=== PATIENT | male | born 1955 | race Caucasian/White ===

== ENCOUNTER 2023-12-09 19:13 | Inpatient (IN) | payer MEDICARE, OTHER, SELFPAY ==
[2023-12-09] VITALS (11 sets, daily range): BP systolic 124–166; BP diastolic 83–115; BMI 27.1
[2023-12-09 11:27] LABS: % Basophils 0.6 % (0-2); % Eosinophils 0.4 % (0-6); % Immature Granulocytes 0.3 % (0-0.5); % Lymphocytes 4.8 % (20.5-51.1); % Monocytes 10.4 % (1.7-9.3); % Neutrophils 83.5 % (42.2-75.2); Absolute Basophils 0.1 10^3/uL (0-0.2); Absolute Lymphocytes 0.5 10^3/uL (1.2-3.4); Absolute Monocytes 1.1 10^3/uL (0.1-0.6); Absolute Neutrophils 8.4 10^3/uL (1.4-6.5); Hematocrit 43.8 % (39.0-52.0); Hemoglobin 14.5 g/dL (13.0-18.0); Mean Corp Hgb Conc. 33.1 g/dL (33.0-37.0); Mean Corpuscular Hgb 34.6 pg (27.0-31.0); Mean Corpuscular Volume 104.5 fL (80.0-94.0); Mean Platelet Volume 10.1 fL (7.4-10.4); Nucleated Red Blood Cells % 0 % (-); Platelet Count 201 10^3/uL (130-400); Red Blood Cell Count 4.19 10^6/uL (4.70-6.10); Red Cell Dist. Width 13.4 % (11.5-14.5); White Blood Cell Count 10.1 10^3/uL (4.8-10.8)
--- NOTE | 2023-12-09 11:36 | ED.GENMED ---
History of Present Illness
General
Chief Complaint: Cardiac Symptoms
Source: patient
Exam Limitations: none
Time Seen by Provider: 12/09/23 11:26
Nursing documentation reviewed up to this point in time: agreed with
History of Present Illness
History of Present Illness:
68-year-old male drinker smoker retired recently has not been in a hospital since he was born, told he had hypertension prescribed lisinopril, not taking it for unknown reasons, presents with subacute onset of cough shortness of breath weight gain
leg edema stopped by local clinic today was quickly referred to the ER for evaluation
Past History
Past History
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
ED Past Surgical History: None
Social History
Tobacco: Smoker
Alcohol: Daily
Drug: None
Living: with family
Employment: Retired
Review of Systems
Review of Systems
All Other Systems: Not applicable
Constitutional: Reports weight gain; Denies fatigue
Respiratory: Reports cough and trouble breathing
Cardiac: Reports chest pain; Denies diaphoresis
: Reports no symptoms
Musculoskeletal: Reports edema
Skin: Reports no symptoms
Neurological: Reports no symptoms
Hematologic/Lymphatic: Reports no symptoms
Psychiatric: Reports no symptoms
Phy Exam
Physical Exam
Physical Exam:
Physical Exam
General: Dyspneic appearing male
Neck: Neck veins are up
Heart: Tachycardic
Lungs: Bilateral crackles
Abdomen: Nontender
Neuro: alert and oriented. no focal neurological deficits
Skin: no rash
Psychiatric: well kept. interactive and cooperative
Extremities: 2+ to 3+ edema
Scores
Heart Failure Risk
Heart Failure Risk Score: Yes
History of Stroke or TIA: No
History of intubation for respiratory distress: No
Heart rate on ED arrival >/= 110: Yes
SaO2 <90% on arrival on room air: No
HR >/=110 during 3min walk test (or too ill to perform test): Yes
ECG has acute ischemic changes: Yes
Urea >/=12mmol/L (BUN 33.6mg/dL): No
Serum CO2>/=35mmol/L: No
Troponin I or T elevated to CA Level (0.4mg/dL): No
NT-proBNP >/=5,000ng/L (5,000pg/ml): No
HF Risk Score: 4
Admission Status: HIGH RISK 26.1% Consider SNF treatment or admission to hospital
Course
Orders/Labs/Results
Orders:
Orders
12/09/23 11:05
Electrocardiogram (*1) Urgent
Reason for Study: Shortness of Breath
12/09/23 11:06
EKG- Treatment ONCE
12/09/23 11:16
CMP [Comprehensive Metabolic Panel] Urgent
Complete Blood Count/With Diff Urgent
DDimer [D-Dimer] Urgent
Pro-BNP [NT-proBNP] Urgent
Troponin I Urgent
12/09/23 11:35
CR Chest Portable - 1 View Urgent
Comment:
Reason For Exam: sob
Reason Study Needs to be Portable: Unable to Transport
12/09/23 11:39
EKG- Treatment ONCE
12/09/23 11:41
Nitroglycerin Sublingual [Nitrostat (Sublingual)] 0.4 mg SL [id number] PRN
12/09/23 12:05
Furosemide [Lasix] 80 mg IV NOW STA
12/09/23 12:15
Enalaprilat [Vasotec] 0.625 mg IV NOW STA
Abnormal Lab Results
12/09/23
11:16
RBC 4.19 L 10^6/uL
(4.70-6.10)
MCV 104.5 H fL
(80.0-94.0)
MCH 34.6 H pg
(27.0-31.0)
Absolute Neuts (auto) 8.4 H 10^3/uL
(1.4-6.5)
Absolute Lymphs (auto) 0.5 L 10^3/uL
(1.2-3.4)
Absolute Monos (auto) 1.1 H 10^3/uL
(0.1-0.6)
Neutrophils % 83.5 H %
(42.2-75.2)
Lymphocytes % 4.8 L %
(20.5-51.1)
Monocytes % 10.4 H %
(1.7-9.3)
D-Dimer 1.86 H ug/mlFEU
(0.00-0.50)
Sodium 134 L mmol/L
(135-145)
Carbon Dioxide 32 H mmol/L
(22-30)
Glucose 109 H mg/dl
(70-99)
Total Bilirubin 1.7 H mg/dl
(0.2-1.3)
12/09/23 11:16
12/09/23 11:16
Vital Signs
Initial and Last Documented VS:
Initial Vital Signs
Temp Pulse Resp BP Pulse Ox
98.8 F 129 28 160/115 95
12/09/23 11:08 12/09/23 11:08 12/09/23 11:08 12/09/23 11:08 12/09/23 11:08
Last Documented Vital Signs
Temp Pulse Resp BP Pulse Ox
98.8 F 126 27 166/105 99
12/09/23 11:08 12/09/23 12:34 12/09/23 12:30 12/09/23 12:34 12/09/23 11:58
MDM/Problems Addressed
Differential Diagnosis Includes:
Hypertensive urgency congestive heart failure late presentation CA valvular disease doubt PE
MDM/Problems Addressed:
Shortness of breath tachycardia dyspnea on exertion
Chronic conditions affecting care:
Noncompliant
Chronic conditions affecting care: HTN
Acute Exacerbation and/or Progression of Chronic Illness:
Noncompliance
Acute Exacerbation and/or Progression of Chronic Illness: HTN
*Radiology
Radiology exam reviewed: preliminary read by ED provider
*Pulse Oximetry
Patient hypoxic: yes
*EKG
Interpreted by ED Provider?: Yes
Interpretation: abnormal
Comparison EKG: no comparison EKG present
Heart Rate: 130
Rate: tachycardiac
Rhythm: sinus
Ischemia: non-specific ST changes
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
Rate: tachycardiac
Interpretation: abnormal
Heart Rate: 140
Rhythm: sinus
*Critical Care Note
Total Time (30-74mins, 75-104mins- exclusive of procedures): 32
Update Note
Update Note:
Update labs noted chest x-ray noted will require admission will start with diuresis, nitrates,
Consideration for specialty consultation echocardiogram etc.
ED Attending Note
-
Portions of this chart may have been created with voice recognition software.� Occasional wrong word or��sound alike� substitutions may have occurred due to the inherent limitations of voice recognition software.
Discharge Plan
Departure
Patient Disposition: Admit
Date of Disposition: 12/09/23
Time of Disposition: 12:08
Admit to: IVU
Presentation/result/management discussed w/ accepting MD/DO: Hospitalist
Condition: Fair
Covid-19: Not Applicable
Discharge Problem:
Hypertensive urgency, malignant
Prescriptions:
No Action
No Current Medications
0
Referrals:
NONE,* [Family Provider] -
Interventions
Interventions:
*Risk Screen - Suicide Last Done: 12/09/23 11:11
*Neglect/Abuse Screening Last Done: 12/09/23 11:11
ED- Fall Risk Assessment Last Done: 12/09/23 11:58
*ED COVID-19 Vaccine History Last Done: 12/09/23 12:35
ED- Pulmonary Assessment Last Done: 12/09/23 11:58
ED- Cardiac Assessment Last Done: 12/09/23 11:58
Discharge Date and Time
Print Language: ARABIC
[2023-12-09 11:52] LABS: ALT (SGPT) 25 U/L (0-50); AST (SGOT) 30 U/L (17-59); Albumin 3.9 g/dl (3.5-5.0); Alkaline Phosphatase 68 U/L (38-126); Blood Urea Nitrogen 18 mg/dl (9-20); Calcium 10.1 mg/dl (8.4-10.2); Carbon Dioxide 32 mmol/L (22-30); Chloride 98 mmol/L (98-107); Glucose 109 mg/dl (70-99); Potassium 4.6 mmol/L (3.5-5.1); Sodium 134 mmol/L (135-145); Total Bilirubin 1.7 mg/dl (0.2-1.3); Total Protein 6.5 g/dl (6.3-8.2); eGFR > 60.00
[2023-12-09 12:02] LABS: NT-proBNP 4820 pg/ml
[2023-12-09 12:14] LABS: D-Dimer 1.86 ug/mlFEU (0.00-0.50)
[2023-12-09] MEDS: LASIX 80 MG IV (12:18)
[2023-12-09] MEDS: VASOTEC 0.625 MG IV (12:34)
--- NOTE | 2023-12-09 18:33 | HPS.HSE ---
Addendum entered and electronically signed by Srikanth Daley MD 12/09/23 22:57:
Attending Addendum-
I performed a history and physical exam of the patient and discussed his management with the resident. I reviewed the resident's note and agree with the documented findings and plan of care CC/HPI- Patient reports to ED with worsening SOB/FAROOQ x 2
weeks, significant swelling LE with weight gain @ 20lbs, and intermittent CP. Patient has not seen a physician in years. Full 12 point ROS reviewed and negative except as documented Exam- vitals reviewed in EMR GEN-mild resp distress heart RRR 3/6
SM @ apex 2/6 SM @ RUSB lungs crackles at bases with scattered wheeze Le +3 pitting edema b/l
# Hypertensive Urgency
- monitor BP closely
- start prn labetolol
- c/s cards for eval
- monitor on tele
# Acute Hypoxemic Respiratory Failure
- multifactorial CHF and reactive airway likely COPD
- start duonebs
- wean o2
- cont lasix IV
# Chest Pain-
- EKG- repeat ordered personally reviewed no ST elevation
- trend troponin
- r/o ACS
- consult cards
# B/L LE Edema
- CHF- BNP 4820
- check ECHO
- consult cards
- cont IV lasix BID
- check b/l LE Doppler r/o DVT
- start lovenox
# ETOH Abuse
- drinks 4-6 drinks per night @ 20 years
- high risk w/d
- start MSAS protocol
- start MVI/Thiamine/Folate
- CM consult
# Tobacco Abuse-
- advised/counselled re quitting
- start nicotine patch
# Hyponatremia
- mild
- hypervolemic
- cont diuresis
- repeat BMP in am
- DVT P- Lovenox
Time spent coordinating care, review of plan of care with resident, personally reviewed records in EMR, med rec, labs, radiology, d/w nursing�- 78 mins
Original Note:
Family Physician
-
Family Physician: * NONE
Chief Complaint
-
Shortness of breath
History of Present Illness
Patient is a 68-year-old male with medical history of essential hypertension (not on any medication), who presents to the ED with SOB and chest pain with inhalation. Patient reports that he has not seen primary care in 6 years, was prescribed
lisinopril 20 mg daily but did not take it for unknown reasons. 3 weeks ago, patient started having SOB on exertion and subsequently bilateral LE edema 2 weeks ago. Patient reports drinking 4 shots of vodka every day for the past 30 years+ and
smoking half pack of cigarette daily. He also reports 35 Lbs weight gain from baseline.
Today patient started having chest pain with deep breathing rated 3/10 with worsening shortness of breath. He was seen in the urgent care and was sent to the hospital. On arrival to the hospital, his blood pressure was max 166/105, tachycardic,
and severely tachypneic. His proBNP was elevated at 4820, troponin 0.020, and D-dimer 1.86. Chest x-ray was remarkable for left bibasilar subsegmental atelectasis with mild cardiomegaly and mild elevated left hemidiaphragm. Patient received
single dose of nitroglycerin 0.5 mg and furosemide 80 mg and enalaprilat 0.625 mg with subsequent drop in blood pressure currently 129/90. Patient also reports loose BM for the past week, denies hematochezia, hemoptysis, abdominal pain, headaches,
fever, chills, and urinary symptoms. Patient was admitted for further evaluation and management.
Medical History
Past Medical History
Past Medical History: Reports HTN
Past Surgical History: Reports None
Social History
Tobacco: Smoker
Alcohol: Daily
Drug: None
Living: With Roomate
Employment: Retired
Family History
Family History: Not pertinent
Allergies / Home Medications
Allergy/Medication List:
Allergies
Allergy/AdvReac Type Severity Reaction Status Date / Time
No Known Allergies Allergy Unverified 12/09/23 11:17
Allergies reflects when Allergies were last updated in [facility].
Home Medications with original date entered in [facility]
Review of Systems
-
History Source: Patient
A 12 point ROS was completed and negative except as noted: Yes
Constitutional: Reports Weight Gain
EENT: Reports No Symptoms
Respiratory: Reports Cough and Trouble Breathing
Cardiac: Reports Chest Pain; Denies Palpitations
Abdomen/GI: Reports Diarrhea; Denies Abdominal Pain, Nausea, Vomiting, Constipated, Bloody Stools or Black Stools
: Reports No Symptoms
Musculoskeletal: Reports No Symptoms
Neurological: Denies Headache or Weakness
Endocrine: Reports No Symptoms
Hematologic/Lymphatic: Reports Swollen Glands (Left parotid gland swelling)
Physical Exam
Vital Signs
Vital Signs
Temp Pulse Resp BP Pulse Ox
98.8 F 113 29 139/86 99
12/09/23 11:08 12/09/23 16:15 12/09/23 16:15 12/09/23 16:08 12/09/23 15:17
Physical Exam
General: Comfortable and Conversant; No Respiratory Distress
HEENT: NormoCephalic
Respiratory: Wheezes and Crackles (Bilateral)
Cardiac: S1/S2, Regular Rhythm and Murmur (Systolic murmur)
GI: Soft, Non Distended and Distended
Musculoskeletal: No Clubbing, Edema, Left Lower Extremity, Edema, Right Lower Extremity and Other (3+ bilateral lower extremity edema)
Skin: Warm and Other (Bilateral lower extremity erythema)
Neuro: Awake, Alert, Oriented and AO x 3
Psych: Calm
Laboratory Results
-
12/09/23 11:16
12/09/23 11:16
Laboratory Results
Total Bilirubin 1.7 mg/dl (0.2-1.3) H 12/09/23 11:16
AST 30 U/L (17-59) 12/09/23 11:16
ALT 25 U/L (0-50) 12/09/23 11:16
Alkaline Phosphatase 68 U/L (38-126) 12/09/23 11:16
Troponin I 0.020 ng/ml 12/09/23 11:16
Data Reviewed
-
Diagnostic Radiology: Image Personally Visualized and interpreted, Report Reviewed by me and Discussed with Physician
Lab Data: Labs Reviewed by me and Discussed with Physician
Impression/Plan
-
Assessment:68-year-old male with medical history of essential hypertension and alcohol use disorder who presents to the ED with SOB, chest pain and bilateral LE edema.
IMPRESSION:
Acute hypoxic respiratory insufficiency
Hypertensive urgency
Chest pain
Alcohol use disorder
Tobacco use disorder
Medically noncompliant
PLAN:
Acute hypoxic respiratory insufficiency
-Most likely due to fluid overload vs severe MR.
-Currently on 3 L O2 NC.
-proBNP 4820
-Echocardiogram in a.m.
-IV Lasix 40 mg twice daily.
-Monitor I's and O's
-Trend daily weights.
-Wean oxygen as tolerated.
-Cardiology consult.
Hypertensive urgency
-Hx of essential hypertension.
-IV Lasix 40 mg BID.
-Labetalol as needed.
Chest pain
-D-dimer 1.86
-Most likely due to PE vs pulmonary edema.
-Troponin 0.020, trend.
-B/l LE Doppler in a.m.
-Start Lovenox.
-Consider CT pulmonary angiography.
Alcohol use disorder
-Reports 30 years+ 4 shots of vodka daily.
-Last drink 12/08/2023, 6 PM.
-Check electrolytes
-MSAS protocol
Tobacco use disorder
-Nicotine patch.
Medical noncompliance
-Does not have PCP
[facility]
DVT prophylaxis: Lovenox
CODE STATUS: Full code.
[2023-12-09] MEDS: LOVENOX 40 MG SC (20:22)
[2023-12-09 20:36] LABS: INR 1.22; PT 15.2 Sec (11.4-14.6)
[2023-12-09 20:37] LABS: APTT 31.9 Sec (23.4-35.0)
[2023-12-09 20:45] LABS: Alcohol None Detected; GGTP 38 U/L (15-73); Magnesium 1.3 mg/dl (1.6-2.3); Phosphorus 3.9 mg/dl (2.5-4.5)
[2023-12-09 20:51] LABS: B-Hydroxybutyrate 0.51 mmol/L (0.02-0.27)
[2023-12-09 20:56] LABS: Troponin I 0.041 ng/ml
--- NOTE | 2023-12-09 21:00 | PTCARENOTE ---
Received patient from ER, AAOx4. Patient able to ambulate from stretcher to bed with steady gait, FAROOQ with ambulation. Oriented to unit. 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 New order for Morphine, CT for
PE, and mag rider. Plan of care continues.
[2023-12-09] MEDS: MORPHINE SULFATE 2 MG IV (21:27)
[2023-12-09 21:35] LABS: Urine Albumin Negative (Neg - Trace); Urine Bilirubin Negative (Negative); Urine Character Clear (Clear); Urine Color Yellow; Urine Glucose Negative (Negative); Urine Ketone Negative (Negative); Urine Leukocyte Negative (Negative); Urine Nitrite Negative (Negative); Urine Occult Blood Negative (Negative); Urine Specific Gravity 1.015 (<1.030); Urine Urobilinogen Negative (Neg - 1+)
[2023-12-09 21:48] LABS: Amphetamines Negative (Negative); Barbiturates Negative (Negative); Benzodiazepines Negative (Negative); Buprenorphine Negative (Negative); Cocaine Negative (Negative); Marijuana Negative (Negative); Methadone Negative (Negative); Methamphetamines Negative (Negative); Opiates Negative (Negative); Phencyclidine Negative (Negative); Tricyclic Antidepressants Negative (Negative)
[2023-12-09] MEDS: MAGNESIUM SULFATE 100 IV (22:43)
[2023-12-10] VITALS (7 sets, daily range): BP systolic 114–156; BP diastolic 77–100; BMI 27.0
[2023-12-10] MEDS: PROTONIX IV 40 MG IV ×2 (00:45→08:12)
[2023-12-10] MEDS: NSS (PRESERVATIVE FREE) 10 ML IV ×2 (00:45→08:13)
--- NOTE | 2023-12-10 02:46 | W.PN.UPDATE ---
Update Note
Progress Note Update
Patient noted with intermittent CP overnight, non radiating and without associated symptoms of SOB, dyspnea or radiation. CT neg for PE. Protonix IV given with some effect. May need GI evaluation for gastritis/ulcer related too heavy prolonged etoh
use.
--- NOTE | 2023-12-10 02:58 | PTCARENOTE ---
Troponin 0.030, EKG abnormal. STONE CUTTER aware, NNO at this time.
[2023-12-10 06:53] LABS: % Basophils 0.4 % (0-2); % Eosinophils 0.4 % (0-6); % Immature Granulocytes 0.6 % (0-0.5); % Lymphocytes 5.9 % (20.5-51.1); % Monocytes 12.6 % (1.7-9.3); % Neutrophils 80.1 % (42.2-75.2); Absolute Lymphocytes 0.4 10^3/uL (1.2-3.4); Absolute Monocytes 0.9 10^3/uL (0.1-0.6); Absolute Neutrophils 5.8 10^3/uL (1.4-6.5); Hematocrit 45.3 % (39.0-52.0); Hemoglobin 14.6 g/dL (13.0-18.0); Mean Corp Hgb Conc. 32.2 g/dL (33.0-37.0); Mean Corpuscular Hgb 34.4 pg (27.0-31.0); Mean Corpuscular Volume 106.6 fL (80.0-94.0); Mean Platelet Volume 10.5 fL (7.4-10.4); Nucleated Red Blood Cells % 0 % (-); Platelet Count 189 10^3/uL (130-400); Red Blood Cell Count 4.25 10^6/uL (4.70-6.10); Red Cell Dist. Width 13.7 % (11.5-14.5); White Blood Cell Count 7.2 10^3/uL (4.8-10.8)
[2023-12-10 07:03] LABS: INR 1.26; PT 15.7 Sec (11.4-14.6)
[2023-12-10 07:04] LABS: APTT 36.5 Sec (23.4-35.0)
[2023-12-10] MEDS: THIAMINE INJECTION 200 MG IV ×3 (08:12→18:15)
[2023-12-10] MEDS: NICODERM TRANSDERMAL 7 MG TRANSDERM (08:12)
[2023-12-10] MEDS: FOLVITE 1 MG PO (08:13)
[2023-12-10] MEDS: MAALOX 30 ML PO (08:13)
[2023-12-10 08:14] LABS: ALT (SGPT) 22 U/L (0-50); AST (SGOT) 23 U/L (17-59); Albumin 3.9 g/dl (3.5-5.0); Alkaline Phosphatase 67 U/L (38-126); Blood Urea Nitrogen 19 mg/dl (9-20); Calcium 10.1 mg/dl (8.4-10.2); Carbon Dioxide 35 mmol/L (22-30); Chloride 94 mmol/L (98-107); Estimated Creatinine Clearance 60 ml/min; Glucose 116 mg/dl (70-99); Potassium 4.4 mmol/L (3.5-5.1); Sodium 136 mmol/L (135-145); Total Bilirubin 1.9 mg/dl (0.2-1.3); Total Protein 6.8 g/dl (6.3-8.2); eGFR 55.09
[2023-12-10] MEDS: ATIVAN 1 MG PO (08:27)
[2023-12-10 08:46] LABS: Glycohemoglobin (HgbA1c) 5.5 % (4.0-5.6)
--- NOTE | 2023-12-10 09:08 | CON.CAR ---
Addendum entered and electronically signed by Xavier Waller MD 12/10/23 16:00:
68 yo male with untreated HTN, hyperlipidemia, EtOH and tobacco abuse, no recent medical care; admitted with 3-4 weeks of progressive SOB/FAROOQ, edema, chest tightness. Exam with RRR, III/ systolic murmur at apex, and 2+ LE edema. TnI peak 0.041.
CT PE: no PE. Echo: EF ~50%, severe MR (ruptured chord, partial flail anterior leaflet), dilated RV with decreased fx, mod TR, PASP 55.
He presents with acute HF (new) and severe MR (new).
-cont IV diuresis, with close monitoring of labs and tele
-cont Toprol
-I suspect he will need MV repair as inpatient, but needs medical optimization first.
-We added him to schedule for R/LHC and ROSS tomorrow, but will check Cr and respiratory status first in AM to make sure stable.
I suspect he has lung disease related to tobacco, likely contributing to RV dysfunction.
Original Note:
Consultation
Consultation Request
Date/Time Consultation Requested: 12/10/2023 9:14 AM
Date/Time Consultation Performed: 12/10/2023 9:20 AM
Requesting Provider: Milvia Miller for Srikanth Castillo.
Performing Provider: Tegan Copeland for Xavier Cisneros
Reason for Consultation: Congestive heart failure
Medical History
-
Chief Complaint: Shortness of breath and chest pain
History of Present Illness:
68-year-old male presents to the hospital with gradual onset shortness of breath about 4 weeks ago, his SOB is exertional initially and gradually became worse needing him to sleep in a recliner within 1 week of onset of SOB. Patient noticed edema
of the feet 3 weeks ago that gradually became progressive. Patient developed a burning pain in his chest which was nonradiating but 2 days ago that prompted an urgent care visit and [place] who referred him to the emergency room. His burning
chest pain was about 5/10, worsened with inspiration at the time of admission but improved towards afternoon. He states that he noticed his pants were tighter at his waist over the last 1 week, also had to loosen up his belt. He reported to have
chest tightness overnight that is now about half to three quarters better. His chest tightness is not associated with any radiation, variation in the pain.
He reports that he last saw his primary about 7 years ago, had a history of diagnosis of hyperlipidemia and hypertension, was on lisinopril 20 Mg about 7 years ago but then let it slip. Currently does not have a primary.
He denies any palpitations, diaphoresis, fever, chills, nausea vomiting, bowel or bladder habit changes, sleep or appetite disturbances.
Past Medical History
Past Medical History: Other (HTN, Hyperlipidemia)
Past Surgical History: None
Social History
Tobacco: Smoker (2 packs a week, for 50 years)
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
Drug: None
Personal: Single
Living: With Roomate
Employment: Retired (worked at [employer])
Family History
Family History: Other (father - kidney cancer, mother - breast cancer)
Allergies / Home Medications
Allergy/AdvReac Type Severity Reaction Status Date / Time
No Known Allergies Allergy Unverified 12/09/23 11:17
�Medication �Instructions �Recorded �Confirmed �Type
No Meds [No Current Medications] 12/09/23 12/09/23 History
Review of Systems
-
History Source: Patient
Constitutional: Fatigue
EENT: No Symptoms
Respiratory: Trouble Breathing (with exertion)
Cardiac: Chest Pain (tightness, about 3/4 better)
Abdomen/GI: No Symptoms
: No Symptoms
Musculoskeletal: Edema
Neurological: No Symptoms
Endocrine: No Symptoms
Hematologic/Lymphatic: No Symptoms
Physical Exam
Vital Signs
Temp Pulse Resp BP Pulse Ox
98.1 F 116 18 143/100 100
12/10/23 07:15 12/10/23 07:15 12/10/23 07:15 12/10/23 07:15 12/10/23 07:15
Lab Results
12/10/23 06:20
12/10/23 06:20
Troponin I Cancelled 12/10/23 07:48
Pis-Z-[id number] Pept 4820 pg/ml 12/09/23 11:16
Physical Exam
General: Comfortable
HEENT: Normocephalic and Anicteric
Respiratory: Wheezes (b/l across all lobes posteriorly, anteriorly in b/l upper lobes)
Cardiac: S1/S2, Regular Rhythm, Murmur (3/6 systolic murmur at aortic area and pulmonic areas, raditing into the carotids) and Carotid Pulses (no bruit); Negative JVD
GI: Soft, Distended (mildly distended, ) and Organomegaly (liver border palpable)
Musculoskeletal: No Clubbing, No Cyanosis and Edema (3+ pitting, b/l)
Neuro: AO x 3 and No Motor Deficits
Impression / Plan
-
Impression-
68-year-old male with chief complaint of SOB, fatigue, pedal edema and chest pain diagnosed with malignant hypertensive emergency, cardiology consulted for evaluation of a systolic murmur heard.
Plan-
Acute decompensated Heart Failure - Unknown type.
Likely multifactorial, ischemic vs non ischemic
untreated HTN vs valvular heart disease vs alcoholic cardiomyopathy vs CAD
Troponins - 0.040, non ischemic myocardial injury
Pro BNP - 4280
Echo studies pending
Continue lasix 40 IV BID
sodium and fluid restriction.
Monitor weight and I & O
His elevation in Sr cr is likely secondary to cardiorenal syndrome, monitor renal function closely.
Aspirin loading dose given, will continue baby aspirin from am tomorrow.
Consider left and right heart catheterization tomorrow to evaluate for ischemic etiology if Sr.cr continues to remain stable.
Hypertensive Emergency
Upon admission, BP - 160/120, with elevated troponins, end organ damage- CHF, treated with IV vasotec.
Currently patient is on metoprolol.
Will continue metoprolol for now, pending echo, will consider changing to Co-reg.
Hold off on Entresto given bump in Sr. Cr. Will start Entresto after improvement in kidney function.
PMHx of HTN and hyperlipidemia, lost for treatment. Will order lipid panel in the am tomorrow.
Hypomagnesemia -
Upon admission, Sr. Mg - 1.3, repleted overnight, repeat Mg - 1.6,
Single oral dose supplementation given.
Will continue monitoring electrolytes closely.
--- NOTE | 2023-12-10 09:49 | W.PN.HOSP.TC ---
Addendum entered and electronically signed by Srikanth Daley MD 12/10/23 23:18:
Attending Addendum-
I saw and evaluated the patient. I reviewed the resident�s note and agree with findings and plan as documented in the resident�s note. Patient reports feeling much improved. Had CP last evening, stat CT done r/o PE. Denies SOB and CP currently Full
12 point ROS reviewed and negative except as documented Exam- vitals reviewed in EMR GEN-NAD heart RRR 3/6 SM @ apex 2/6 SM @ RUSB lungs crackles at bases with scattered wheeze LE +3 pitting edema b/l Neuro AAO x 3
# Hypertensive Emergency
- monitor BP closely
- cont new Toprol XL
- cont prn labetolol
- appreciate cards input
- monitor on tele
# BLAKE-
- likely CR syndrome from valvular issues and lasix
- also received IV dye on 12/[address] scan- monitor renal function closely
- repeat BMP in am
# Acute Hypoxemic Respiratory Failure
- resolved
- multifactorial CHF and reactive airway likely COPD- check PFT's for dx
- cont ATC duonebs
- cont lasix IV
- pulm c/s for eval
- CT chest 12/08-
1. MODERATE to SEVERE CARDIOMEGALY suggesting a DILATED NONISCHEMIC CARDIOMYOPATHY.
2. Mild calcific atherosclerotic plaque in the coronary arteries.
3. Mild centrilobular emphysema in the upper lobes of both lungs.
4. Mild bronchial wall thickening in the lower lobes suggesting mild bronchitis.
5. Mild scarring and subsegmental atelectasis in the lower lungs.
6. 3.2 cm midline cyst in the anterior chest wall.
# Non ischemic myocardial inury
- EKG prn CP
- trend troponin- peaked .041
- cards on board
- echo 12/09- Low normal left ventricular systolic function. Left ventricular ejection fraction is 50%. ruptured chord and partial flail of
the anterior mitral valve leaflet. Severe, eccentric mitral regurgiation. Elevated PASP
# Severe MR-
- will need OR
- CT surg c/s
- pulm c/s eval prior
- for right/left heart cathand ROSS in am
# AE HFpEF
- CHF- BNP 4820
- echo reviewed EF 50%
- cards on board
- decreased 6kgs
- daily weight strict i and o
- cont IV lasix BID
- b/l LE Doppler- neg for DVT
- cont lovenox
# Hypomagnesemia-
- replete
- repeat in am
# ETOH Abuse
- drinks 4-6 drinks per night @ 20 years
- high risk w/d
- cont MSAS protocol
- cont MVI/Thiamine/Folate
- CM consult
# Tobacco Abuse-
- advised/counselled re quitting
- start nicotine patch
# Hyponatremia
- mild
- hypervolemic
- cont diuresis
- repeat BMP in am
- DVT P- Lovenox
Time spent coordinating care, review of plan of care with resident, personally reviewed records in EMR, med rec, labs, radiology, d/w nursing cards�- 59 mins
Original Note:
Today's Communication/Plan
-
Echocardiogram and cardiology consult
Assessment / Plan
Assessment / Plan
# Hypertensive Urgency
- monitor BP closely
-Continue prn labetolol for systolics over 170
- monitor on tele
# Acute Hypoxemic Respiratory Failure
- multifactorial CHF and reactive airway likely COPD
- start duonebs
�Will consult pulmonology for PFTs. PFTs will be used for potential COPD diagnosis pending for preop purposes.
- wean o2
- cont lasix IV
# Heart failure w preserved ef
-TTE on 12/10/2023 demonstrated an ejection fraction of 50% and severe MR with ruptured chordae and partial flail of the anterior leaflet.
-CT surgery was consulted for evaluation regarding mitral valve replacement and repair as an inpatient. However he requires more medical optimization first. Will continue diuresis.
# Chest Pain-
- EKG- repeat ordered personally reviewed no ST elevation but T wave inversions were present. Will continue serial EKGs as patient is having intermittent chest pain
-Troponins were trended and peaked at 0.041 and then decreased. Cardiology was consulted at says it is likely a type II demand ischemia.
# B/L LE Edema
- CHF- BNP 4820
- cont IV lasix BID
-Bilateral lower extremity Doppler returned with no evidence of DVT in the lower extremities bilaterally
-Continue lovenox
# ETOH Abuse
- drinks 4-6 drinks per night @ 20 years
- high risk w/d
- start MSAS protocol, score this morning was 5
- start MVI/Thiamine/Folate
- CM consult
# Tobacco Abuse-
- advised/counselled re quitting
- start nicotine patch
# Hyponatremia
- mild
- hypervolemic
- cont diuresis with IV Lasix
- repeat BMP in am
- DVT P- Lovenox

Data:
Echocardiography 12/10/2023:
Low normal left ventricular systolic function. Left ventricular ejection
fraction is 50%.
Thickened mitral valve leaflets. There is a ruptured chord and partial flail of
the anterior mitral valve leaflet.
Severe, eccentric mitral regurgiation.
Aortic sclerosis without stenosis. Trace aortic regurgitation is seen.
Enlarged right ventricular size. Reduced right ventricular systolic function.
Moderate tricuspid regurgitation. Moderate/severely elevated PASP. Estimated
pulmonary artery pressure of 55 mmHg assuming a right atrial pressure of 15
mmHg.
Anticipated Discharge: > 48 hours
Subjective/Interval History
-
Date of Service: December 10, 2023
Had episodes of chest tightness overnight was given morphine and Protonix also had a CTA which was negative for PE.
Objective Data
-
Labs:
Laboratory Results
12/10/23
06:20
WBC 7.2
Hgb 14.6
Hct 45.3
Plt Count 189
PT 15.7 H
INR 1.26
APTT 36.5 H
Sodium 136
Potassium 4.4
Chloride 94 L
Carbon Dioxide 35 H
BUN 19
Creatinine 1.4 H
Glucose 116 H
Calcium 10.1
Total Bilirubin 1.9 H
AST 23
ALT 22
Alkaline Phosphatase 67
Vital Signs:
Vital Signs
Temp Pulse Resp BP Pulse Ox
98.1 F 116 18 143/100 100
12/10/23 07:15 12/10/23 07:15 12/10/23 07:15 12/10/23 07:15 12/10/23 07:15
I&O
12/09/23 12/10/23 12/11/23
06:59 06:59 06:59
Intake Total 240 / 240
Output Total 3860 / 3860
Balance -3620 / -3620
Review of Systems
-
History Source: Patient
Constitutional: Reports No Symptoms
Respiratory: Reports Trouble Breathing
Cardiac: Reports Chest Pain
Abdomen/GI: Reports No Symptoms
Genitourinary: Reports No Symptoms
Musculoskeletal: Reports Edema
Physical Exam
-
General: No Apparent Distress
Respiratory: Clear to Auscultation
Cardiac: Murmur
GI: Soft, Nontender and Distended
Musculoskeletal: Edema, Right Lower Extrem and Edema, Left Lower Extrem
Skin: Warm and Dry
Neuro: AO x 3
Psych: Calm
Data Reviewed
-
Diagnostic Radiology: Image personally visualized and interpreted, Report Reviewed by me and Discussed with Physician
Labs: Labs Reviewed by me and Discussed with Physician
[2023-12-10 10:38] LABS: Magnesium 1.6 mg/dl (1.6-2.3)
[2023-12-10] MEDS: PULMICORT 0.25 MG INH (11:40)
[2023-12-10] MEDS: ASPIRIN 325 MG PO (11:53)
[2023-12-10] MEDS: LASIX 40 MG IV ×2 (11:54→18:13)
[2023-12-10] MEDS: MAGNESIUM OXIDE 500 MG PO (11:54)
[2023-12-10] MEDS: TOPROL XL 25 MG PO (11:54)
--- NOTE | 2023-12-10 14:04 | CONSULT.CT ---
Consultation
-
Date/Time Consultation Requested: 12/10/23
Date/Time Consultation Performed: 12/10/23 0415
Requesting Provider: Dr. Xavier Waller MD.
Performing Provider: Kay Agarwal PA-C
Reason for Consultation: Newly diagnosed severe MR
Patient History
Physicians
Family Physician: None
Outpatient Nail Welter: None
Inpatient Nail Welter: [facility]/Dr. Xavier Waller MD.
History of Present Illness
Patient is an extremely pleasant 68 y/o male who has not received any medical care in the past 7 years. He was previously diagnosed with hypertension and placed on 20 lisinopril twice daily however, he non-compliantly stopped taking his medications
and did not have any follow up.
His PMH consists of HTN, heart murmur diagnosed 30 years ago, COPD/emphysema, daily alcohol use (3-4 drinks per day-vodka), tobacco abuse, and current smoker (2 packs per week x 40+ years), who has been experiencing multiple and progressing symptoms
for the past 4 weeks. Patient admits to exertional SOB/FAROOQ, lower extremity edema, PND, orthopnea (sleeps in a recliner), and chest discomfort described as chest burning with inhalation.
He sought medical attention at an urgent care in [place] and was referred to [facility]'s emergency department on 12/09/2023. Further workup in the emergency department revealed a chest x-ray revealing no acute concerns (elevated left
hemidiaphragm), CT PE study which was negative, and EKG revealing sinus tachycardia with PVCs (121). His peak troponin was 0.041 likely due to type II demand ischemia.
Subsequent TTE reveals an ejection fraction of 50%, trace AI, moderate TR, and severe MR with ruptured chordae and partial flail of the anterior leaflet. CT surgery was consulted for evaluation regarding mitral valve repair/replacement.
Of note: Patient resides on medicine service and is being treated with IV steroids (Decadron 6 mg IV twice daily).
EK12/09/23
ST, PVC's (121)
TEEcho: 12/10/23 Sridhar
EF 50%
Severe MR, ruptured cord and partial flail of anterior leaflet
Trace AI
Moderate TR
Trace MO
LVSD: 44
LVDD: 55
PAP: 55
CT PE Study: 12/09/23
No evidence of central filling defect/pulmonary embolism
Past Medical History
Past Medical History: Other
HTN
Heart murmur diagnosed 30 years ago
Daily ETOH (3-4 drinks per day-vodka)
Tobacco abuse/current smoker (2 packs per week x 40+ years)
COPD/emphysema
Past Surgical History
Patient denies any previous surgical intervention
Dental History
Last seen 6 months ago by DMD. Jose Cooperison, for routine cleaning.
Family History
Mother: at Age (69) and Cause of (Complications with breast and colon cancer)
Father: at Age (95) and Cause of (Complications with kidney/bladder cancer. Did suffer from coronary artery disease, history of PCI and stenting)
Family Medical History: CAD
Social History
Alcohol: Daily (3-4 drinks per day-vodka)
Drug: None
Tobacco: Smoker (Current everyday smoker (2 packs per week x 40+ years).)
Personal: Single
Living: With Roomate
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
Allergies
Allergy/AdvReac Type Severity Reaction Status Date / Time
No Known Allergies Allergy Unverified 12/09/23 11:17
Home Medications
�Medication �Instructions �Recorded �Confirmed �Type
No Meds [No Current Medications] 12/09/23 12/09/23 History
Review of Systems
-
History Source: Patient
General: Reports Fever (100.4 upon admission ); Denies Weight Gain, Weight Loss or Fatigue
HEENT: Denies Visual Changes, Dysphagia, Hoarseness or Sore Throat
Respiratory: Reports SOB, FAROOQ and PND; Denies Cough or Asthma
Cardiac: Reports Edema; Denies Chest Pain, CAD, Known Vascular Disease, Palpitations, Nausea, Vomiting or Diaphoresis
Abdomen/GI: Denies Abdominal Pain, Reflux, Indigestion, Nausea, Vomiting, BRBPR or Ulcers
: Reports Nocturia (2-4x/night ); Denies Dysuria, Frequency, Incontinence, Urgency or Hematuria
Musculoskeletal: Denies Myalgias or Arthralgias
Skin: Denies Rash
Neurological: Denies CVA, TIA, Headaches, Syncope, Dizzy or Seizures
Vascular: Denies Claudication or PVD
Physical Exam
Vital Signs
Temp 98.3 F 12/10/23 11:04
Temp route: Oral 12/10/23 11:04
Pulse 122 12/10/23 11:54
Rhythm: Sinus tachycardia 12/10/23 08:00
With- PVC's Monomorphic 12/09/23 22:00
Resp Rate 16 12/10/23 11:43
Blood pressure 122/83 12/10/23 11:54
Blood pressure extremity used: Right upper arm 12/10/23 11:04
Position: Sitting 12/10/23 11:04
MAP (cuff-Chi Monitor) 95 12/09/23 19:00
SaO2 93 12/10/23 11:43
Nasal Cannula flow liters per minute 2 12/10/23 11:43
Oxygen Mode of Delivery Room air 12/10/23 11:04
Can the patient verbally communicate their pain? Yes 12/09/23 22:27
Pain scale ratin 12/09/23 22:27
Actual Weight 210 lb 7 oz 12/10/23 06:00
Body Mass Index (BMI) 27.0 12/10/23 06:00
Labs
12/10/23 06:20
12/10/23 06:20
PT 15.7 Sec (11.4-14.6) H 12/10/23 06:20
APTT 36.5 Sec (23.4-35.0) H 12/10/23 06:20
Hemoglobin A1c 5.5 % (4.0-5.6) 12/10/23 06:20
Troponin I Cancelled 12/10/23 07:48
Ris-J-Vsddbqqrskt Pept 4820 pg/ml 12/09/23 11:16
Urinalysis
Urine Color Yellow 12/09/23 21:22
Urine Clarity Clear (Clear) 12/09/23 21:22
Urine pH 5.0 (5.0-9.0) 12/09/23 21:22
Ur Specific Wynne 1.015 (<1.030) 12/09/23 21:22
Urine Ketones Negative (Negative) 12/09/23 21:22
Urine Occult Blood Negative (Negative) 12/09/23 21:22
Urine Bilirubin Negative (Negative) 12/09/23 21:22
Ur Leukocyte Esterase Negative (Negative) 12/09/23 21:22
Urine Glucose Negative (Negative) 12/09/23 21:22
Urine Albumin Negative (Neg - Trace) 12/09/23 21:22
Diagnostic Studies
EK12/09/23
ST, PVC's (121)
TEEcho: 12/10/23 Sridhar
EF 50%
Severe MR, ruptured cord and partial flail of anterior leaflet
Trace AI
Moderate TR
Trace MO
LVSD: 44
LVDD: 55
PAP: 55
CT PE Study: 12/09/23
No evidence of central filling defect/pulmonary embolism
Exam
General: Well Developed, Well Nourished and No Apparent Distress (However, does appear mildly winded with conversation)
HEENT: Normocephalic, Moist Mucous Membranes, Atraumatic, PERRLA and EOMI
Neck: Trachea Midline; Negative Carotid Bruit
Respiratory: Wheezes (Mild, expiratory); Negative Crackles or Rhonchi
Cardiac: S1/S2, Regular Rhythm (/ sinus tachycardia), Murmur (4/6 Systolic murmur at apex with radiation to the left axilla ) and Other (Mass/cyst overlying sternum); Negative Rub or Gallop
GI: Soft, Non Tender, Non Distended and Normal Bowel Sounds
Rectal: Deferred by Provider
Skin: Warm and Dry; Negative Rash
Neuro: AO x 3, No Motor Deficits and CN X-XII Intact
Extremities: Lower Level Edema (3+ LE edema L > R ); Negative Upper Level Edema, Upper Level Cyanosis, Lower Level Cyanosis, Upper Level Clubbing or Lower Level Clubbing
Psych: Calm
Assessment / Plan
-
Assessment:
68 year old male with PMH of:
HTN
Heart murmur diagnosed 30 years ago
COPD/emphysema
Daily alcohol use (3-4 drinks per day-vodka)
Tobacco abuse, and current smoker (2 packs per week x 40+ years)
Now found to have newly diagnosed:
Severe MR
Acute HFpEF
Type II WI, demand ischemia, peak troponin 0.041
Cardiorenal syndrome with elevated serum Cr of 1.4 and total bilirubin of 1.9
Plan:
Patient's case to be discussed with attending physician.
Routine preoperative cardiothoracic surgery workup will be initiated.
STS risk stratification will be calculated once all preoperative data is collected.
Currently receiving IV steroids (Decadron 6 mg IV every 12) likely for COPD/emphysema and current tobacco use.
Continue care per primary service�hospitalist.
Cardiology following, input appreciated, continue diuresis.
Possible L & R HC tomorrow if renal functions remains stable.
Will likely need ROSS.
Further details regarding patient's intervention will be determined after attending physicians full review.
--- NOTE | 2023-12-10 17:07 | CM ---
IA not done pt off floor. [facility] saw pt. He agrees to inpatient substance abuse rehab.
[2023-12-10] MEDS: DUONEB INH (17:49)
[2023-12-10] MEDS: LOVENOX 40 MG SC (18:06)
[2023-12-10] MEDS: DUONEB 3 ML INH (19:40)
[2023-12-11] VITALS (15 sets, daily range): BP systolic 112–128; BP diastolic 64–89; BMI 26.7
[2023-12-11] MEDS: THIAMINE INJECTION 200 MG IV ×3 (00:04→16:17)
[2023-12-11] MEDS: DUONEB 3 ML INH ×4 (02:04→19:25)
[2023-12-11 07:04] LABS: Mean Corp Hgb Conc. 31.8 g/dL (33.0-37.0); Mean Corpuscular Hgb 34.2 pg (27.0-31.0); Mean Corpuscular Volume 107.6 fL (80.0-94.0); Mean Platelet Volume 10.3 fL (7.4-10.4); Platelet Count 188 10^3/uL (130-400); Red Blood Cell Count 4.09 10^6/uL (4.70-6.10); Red Cell Dist. Width 13.2 % (11.5-14.5); White Blood Cell Count 6.1 10^3/uL (4.8-10.8)
[2023-12-11 07:13] LABS: INR 1.23; PT 15.3 Sec (11.4-14.6)
[2023-12-11 07:14] LABS: APTT 36.2 Sec (23.4-35.0)
[2023-12-11 07:36] LABS: ALT (SGPT) 19 U/L (0-50); AST (SGOT) 22 U/L (17-59); Albumin 3.6 g/dl (3.5-5.0); Alkaline Phosphatase 61 U/L (38-126); Blood Urea Nitrogen 27 mg/dl (9-20); Calcium 10.4 mg/dl (8.4-10.2); Carbon Dioxide 35 mmol/L (22-30); Chloride 94 mmol/L (98-107); Direct Bilirubin 0.6 mg/dl (0.0-0.4); Estimated Creatinine Clearance 64 ml/min; Glucose 107 mg/dl (70-99); HDL Cholesterol 51 mg/dl; LDL Cholesterol, Calculated 47 mg/dl; Magnesium 1.5 mg/dl (1.6-2.3); Potassium 4.2 mmol/L (3.5-5.1); Sodium 136 mmol/L (135-145); Total Bilirubin 1.6 mg/dl (0.2-1.3); Total Cholesterol 108 mg/dl (50-199); Total Protein 6.2 g/dl (6.3-8.2); Triglyceride 51 mg/dl (10-149); Very Low Density Lipoprotein 10 mg/dl (0-30); eGFR > 60.00
--- NOTE | 2023-12-11 08:34 | W.PN.CD ---
Today's Communication / Plan
-
- Continue IV lasix
- Metoprolol
- Right and left heart catheterization
-ROSS
Impression / Plan
-
Background -
68-year-old male with PMHx significant for untreated HTN, and Hyperlipidemia presents malignant hypertensive emergency, and heart failure symptoms. Cardiology consulted for evaluation of a systolic murmur heard.
Impression-
Acute decompensated Heart Failure -HFpEF.
On IV lasix BID.
proBNP-4280.
Untreated HTN and HLD in the past.
sodium and fluid restriction.
Monitor weight and I & O
Sr. Cr - 1.3 today, BUN - 27, monitor renal function closely.
right and left heart catheterization, ROSS evaluation rescheduled as patient ate his meals in the am today.
s/p right and left heart catheterization, non obstructing Coronary artery disease, 40% lesion in the mid circumflex. between OM2 and OM3 branches.
Conclusion of right and left heart catheterization -
1. Right dominant circulation with a 40% lesion in the mid circumflex.
2. Mild to moderately elevated filling pressures (LVEDP = 16 mmHg, PCWP = 20 mmHg at 94.3 kg).
3. 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
4. Severe mitral valve regurgitation on echocardiogram.
Echocardiogram- 12/10/23 -
Low normal left ventricular systolic function. LVEF - 50%
Thickened mitral valve leaflets. There is a ruptured chord and partial flail of the anterior mitral valve leaflet.
Severe, eccentric mitral regurgitation.
dilated RV with decreased function, Moderate/severely elevated PASP - 55mmhg.
Hypertensive Emergency
Upon admission, BP - 160/120, with elevated troponins, end organ damage- CHF, treated with IV vasotec.
Currently patient is on metoprolol.
BP well controlled on lasix and Metoprolol.
Will consider entresto in the am tomorrow.
Lipid panel WNL.
Pulmonary HTN -
Likely a confluence of COPD and MR.
Right heart catheterization today.
Hypomagnesemia -
IV magnesium repletion.
Will continue monitoring electrolytes closely.
Physical Exam
Vital Signs/Labs
Vital Signs
Temp Pulse Resp BP Pulse Ox
97.9 F 84 16 116/80 96
12/11/23 07:35 12/11/23 07:35 12/11/23 07:35 12/11/23 07:35 12/11/23 07:35
12/10/23 12/11/23 12/12/23
06:59 06:59 06:59
Actual Weight 95.453 kg 94.347 kg
12/11/23 06:46
12/11/23 06:46
PT 15.3 Sec (11.4-14.6) H 12/11/23 06:46
INR 1.23 12/11/23 06:46
APTT 36.2 Sec (23.4-35.0) H 12/11/23 06:46
Magnesium 1.5 mg/dl (1.6-2.3) L 12/11/23 06:46
Triglycerides 51 mg/dl (10-149) 12/11/23 06:46
LDL Cholesterol, Calc 47 mg/dl 12/11/23 06:46
VLDL Cholesterol, Calc 10 mg/dl (0-30) 12/11/23 06:46
HDL Cholesterol 51 mg/dl 12/11/23 06:46
12/09/23
11:16
Ylv-J-Obuetqhrgwm Pept 4820
LAB Results
12/09/23 12/09/23 12/10/23
11:16 20:16 02:06
Troponin I 0.020 0.041 H* 0.030 D
12/10/23
07:48
Troponin I Cancelled
Physical Exam
Constitutional: Comfortable
Cardiovascular: Rhythm & rate is regular, JVD present, Systolic murmur present (3/6 at apex) and S1S2 is normal
Respiratory: Respiratory effort normal, Wheeze Present (improved.) and Crackles Present (b/l lower lobes)
Neuro/Psych: AO x 3
Data Reviewed
-
Date of Service: December 11, 2023
[2023-12-11] MEDS: TOPROL XL 25 MG PO (08:47)
[2023-12-11] MEDS: LASIX 40 MG IV ×2 (08:47→16:17)
[2023-12-11] MEDS: LOW STRENGTH ASPIRIN 81 MG PO (08:47)
[2023-12-11] MEDS: FOLVITE 1 MG PO (08:47)
[2023-12-11] MEDS: NICODERM TRANSDERMAL TRANSDERM (08:49)
[2023-12-11] MEDS: NSS (PRESERVATIVE FREE) 10 ML IV (08:55)
[2023-12-11] MEDS: PROTONIX IV 40 MG IV (08:55)
[2023-12-11] MEDS: MAGNESIUM SULFATE 50 IV (08:55)
[2023-12-11] MEDS: FLUSH (NSS) 1 FLUSH IV ×2 (08:56→16:17)
--- NOTE | 2023-12-11 12:39 | CON.PUL ---
Consultation
Consultation Request
Date/Time Consultation Requested: 12/10/2023 - 1815
Date/Time Consultation Performed: 12/11/2023925
Requesting Provider: Dr. Pressley
Performing Provider: Dr. Ruvalcaba
Reason for Consultation: COPD/preoperative pulmonary optimization
Medical History
-
Chief Complaint: Lower extremity edema + SOB
History of Present Illness:
68-year-old male with a past medical history of hypertension and hyperlipidemia presented with SOB X 2 weeks with significant lower extremity swelling and weight gain. Also endorsed occasional chest pain. Patient has not seen a doctor in years
hence past medical history is limited. He appeared volume overloaded on exam and was hypertensive initially to 160/115, with heart rate 129 and saturating 95% on room air. Dx with acute heart failure and he was given Vasotec IV X1 + Lasix in the
ER and admitted to the hospitalist service for further care with cardiology consulted. CXR showed cardiomegaly with left hemidiaphragm elevation, and CT of the chest showed centrilobular emphysema with moderate to severe cardiomegaly and global
cardiac chamber enlargement. TTE showed severe eccentric MR with ruptured chordae and partial flail of anterior MV leaflet seen on TTE. Cardiothoracic surgery consulted, and preoperative PFT performed on 12/10/2023 showed very severe COPD with
significant BD response, significant air trapping, very severe gas exchange capacity defect as well as very severe restrictive lung defect. He underwent left and right heart catheterization today showing right dominant circulation with 40% lesion
in the mid circumflex, with elevated LVEDP at 16 mmHg with PCWP 20 mmHg, with severe MR seen on echo from yesterday. Pulmonary now consulted for additional management of his COPD as well as preoperative pulmonary optimization.
When I saw the patient he was in bed, in no acute distress, saying he has no shortness of breath since yesterday and feels much better overall. He is pulling 1500 cc on incentive spirometer. He is walking around the unit in no acute distress, with
no shortness of breath or chest pain. He says that he smokes about 2 packs/week over the last 6 years, but previously was smoking about 1 pack/day for about 45 years. He understands that he has to quit and is amenable for this, but he is still
contemplating cigarette cessation. He currently denies headache, chest pain, shortness of breath, abdominal pain, fevers or chills.
PMHx: HTN/HLD, tobacco use disorder and alcohol use disorder
PSHx: None
Past Medical History
Past Medical History: Other (Above as per HPI)
Past Surgical History: Other (Above as per HPI)
Social History
Tobacco: Smoker (1-2 packs/week x last 6 years, previously was 1PPD x 45 years)
Alcohol: Daily
Drug: None
Living: With Roomate
Employment: Retired
Family History
Family History: Reviewed & Not Pertinent
Allergies / Home Medications
Allergies
Allergy/AdvReac Type Severity Reaction Status Date / Time
No Known Allergies Allergy Unverified 12/09/23 11:17
Home Medications
�Medication �Instructions �Recorded �Confirmed �Last Taken �Type
No Meds [No Current Medications] 12/09/23 12/09/23 Unknown History
Review of Systems
-
History Source: Patient
All other systems: Negative unless noted
Vitals / Labs / Diagnostic Testing
Vital Signs
Temp Pulse Resp BP Pulse Ox
97.8 F 81 16 120/82 95
12/11/23 10:59 12/11/23 10:59 12/11/23 10:59 12/11/23 10:59 12/11/23 10:59
Lab Data
12/11/23 06:46
12/11/23 06:46
Laboratory Results
12/11/23
06:46
PT 15.3 H
INR 1.23
APTT 36.2 H
Diagnostic Testing:
Physical Exam
-
HEENT: Normocephalic and Anicteric
Cardiovascular: S1/S2, Murmur (Holosystolic murmur heard at the LUSB + left 5th intercostal space) and Peripheral Edema (+1 lower extremity edema)
Respiratory: Wheeze (negative), Rales (Bibasilar), Rhonchi (Negative) and Non-Labored Respirations
GI: Soft, Non Distended, Non Tender and Normal Bowel Sounds
Neurology: AO x 3 and Tremors (Negative)
Skin: Warm and Dry
General: Comfortable and Chills (Negative)
Assessment
-
Assessment: 68-year-old male with a past medical history of hypertension and hyperlipidemia presented with SOB X 2 weeks with significant lower extremity swelling and weight gain. Also endorsed occasional chest pain. Patient has not seen a doctor
in years hence past medical history is limited. He appeared volume overloaded on exam and was hypertensive initially to 160/115, with heart rate 129 and saturating 95% on room air. Dx with acute heart failure and he was given Vasotec IV X1 + Lasix
in the ER and admitted to the hospitalist service for further care with cardiology consulted. CXR showed cardiomegaly with left hemidiaphragm elevation, and CT of the chest showed centrilobular emphysema with moderate to severe cardiomegaly and
global cardiac chamber enlargement. TTE showed severe acute eccentric MR with ruptured chordae and partial flail of anterior MV leaflet seen on TTE. Cardiothoracic surgery consulted, and preoperative PFT performed on 12/10/2023 showed very severe
COPD with significant BD response, significant air trapping, very severe gas exchange capacity defect as well as very severe restrictive lung defect. He underwent left and right heart catheterization today showing right dominant circulation with
40% lesion in the mid circumflex, with elevated LVEDP at 16 mmHg with PCWP 20 mmHg, with severe MR seen on echo from yesterday. Pulmonary now consulted for additional management of his COPD as well as preoperative pulmonary optimization.
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
Impression:
#Very severe COPD (due to centrilobular emphysema) with air trapping
#Hypertensive urgency now improved
#Moderate�severe cardiomegaly with suggested dilated NICM from uncontrolled long-standing HTN (+/- EtOH), with mild coronary calcific atherosclerotic plaque seen on CTA chest from 12/09/2023
#Acute decompensated heart failure/acute HFpEF with severe eccentric MR with ruptured cord and partial flail of anterior MV leaflet (per TTE from 12/10/2023)
#Moderate pulmonary hypertension with mPAP: 38mmHg
#Daily alcohol use
#Tobacco use disorder
Plan:
- Maintain BP <140/90
- Diuresis as tolerated and trend I/O, UOP and sCr
- Severe mitral valve regurgitation surgical intervention per cardiothoracic surgery - he is now awaiting ROSS
- Start LAMA/LABA combo with Spiriva and Striverdi, and change ATC Duonebs to prn; he should be DC'd home on either Stiolto vs Anoro ellipta with outpatient follow up (which I will arrange)
- Tobacco cessation strongly encouraged and reinforced during today's encounter
- Discussed nicotine replacement therapy
- Nicotine patch for now
- He qualifies for LDCT chest for lung cancer screening purposes -considering he just had a CTA chest performed on 12/09/2023, he does not need to repeat CT chest until December 2024
- Maintain SpO2 >90-94% with supplemental O2 as needed
- Incentive spirometer
- Replete electrolytes with K>4, Mg>2
- Maintain euglycemia with goal BG >100 and <180
- prn nebulized bronchodilators
- DVT ppx
Pulmonary service will continue to follow along. I will arrange to see the patient in the office following discharge.
Total time spent today was 75 minutes for this encounter. Time includes reviewing laboratory test/imaging results, reviewing pertinent medical records, obtaining and reviewing medical history, performing an appropriate exam, ordering medications,
tests and procedures. Time also includes documentation of this encounter, coordinating patient care and communicating with other healthcare professionals. Total time does not include separately billed tests performed on this date of service.
Data:
CTA Chest 7-1-2024:
1. MODERATE to SEVERE CARDIOMEGALY suggesting a DILATED NONISCHEMIC CARDIOMYOPATHY.
2. Mild calcific atherosclerotic plaque in the coronary arteries.
3. Mild centrilobular emphysema in the upper lobes of both lungs.
4. Mild bronchial wall thickening in the lower lobes suggesting mild bronchitis.
5. Mild scarring and subsegmental atelectasis in the lower lungs.
6. 3.2 cm midline cyst in the anterior chest wall.
[facility] 12-11-2023:
CONCLUSIONS:
1. Right dominant circulation with a 40% lesion in the mid circumflex.
2. Mild to moderately elevated filling pressures (LVEDP = 16 mmHg, PCWP = 20 mmHg at 94.3 kg).
3. 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
4. Severe mitral valve regurgitation on echocardiogram.
RECOMMENDATIONS:
1. Expectant management after cardiac catheterization via right radial/antecubital approach.
2. Limited weight bearing on the right wrist for one week.
3. Guideline directed medical therapy as hemodynamics will tolerate.
4. Consultation with CT surgery regarding optimal strategy for mitral valve repair (surgical versus percutaneous).
TTE 12-10-2023:
Low normal left ventricular systolic function. Left ventricular ejection
fraction is 50%.
Thickened mitral valve leaflets. There is a ruptured chord and partial flail of
the anterior mitral valve leaflet.
Severe, eccentric mitral regurgiation.
Aortic sclerosis without stenosis. Trace aortic regurgitation is seen.
Enlarged right ventricular size. Reduced right ventricular systolic function.
Moderate tricuspid regurgitation. Moderate/severely elevated PASP. Estimated
pulmonary artery pressure of 55 mmHg assuming a right atrial pressure of 15
mmHg.
No prior study available for comparison.
--- NOTE | 2023-12-11 13:26 | ITS.CL.CATH ---
[employer] - Catheterization
Cardiac Catheterization
Procedure Report:
CARDIAC CATHETERIZATION REPORT
Date of Procedure: 12/11/2023
Referring: Jose L Gamez M.D.
Indication: Severe mitral valve vegetation.
PROCEDURE:
1. Right heart catheterization.
2. Left heart catheterization.
3. Coronary angiography.
ACCESS:
6 Armenian right radial artery.
5 Armenian right antecubital vein.
CATHETERS:
1. 5 Armenian balloon wedge.
2. 5 Armenian JL 3.5.
3. 5 Armenian JR4.
HEMODYNAMIC DATA
Weight (kg): 94.3
AO (s/d/x mmHg): 118/90/103
LV (s/x mmHg): 120/16
PCWP (a/v/x mmHg): 25/36/20
PA (s/d/x mmHg): 60/27/38
RV (s/x mmHg): 68/15
RA (a/v/x mmHg): 22/21/15
SVC SvO2 (%): 58.1
PA SvO2 (%): 58.9
SaO2 (%): 93.7
Hbg (g/dL): 14.3
CO (L/min): 3.85
CI (L/min/m2): 1.74
TPG (mmHg): 18
PVR (Sosa Units): 4.67
SVR (dynes*seconds*cm^-5): 1829
AVO2 Diff (Volume %): 6.77
AV gradient (x, mmHg): None.
AV area (cm2): Normal.
LEFT VENTRICULOGRAPHY: Not performed.
CORONARY ANGIOGRAPHY
Dominance: Right.
Left Main: Normal size, bifurcating vessel. There is no coronary artery disease.
LAD: Large size vessel giving rise to 1 large diagonal before wrapping around the apex of the heart and supplying the distal inferior third of the interventricular septum. There is no significant coronary artery disease.
Ramus: Congenitally absent.
Circumflex: Large size, nondominant vessel giving rise to 3 obtuse marginals. OM1 is a small vessel arising very high on the circumflex. OM 2 is a small vessel in the mid circumflex. OM 3 is a small to medium size vessel. OM 4 is a much larger
vessel supplying the majority of the inferolateral wall. There is a 40% lesion in the mid circumflex, and between OM 2 and OM 3.
RCA: Normal size, dominant vessel with a prominent posterolateral arcade. There are minor luminal irregularities.
INTERVENTIONS
None.
Closure Device: Vascular band for the right radial artery, manual pressure for the right antecubital vein.
Radiation dose (mGy): 285.93
DAP (cm2.Gy): 28.1671
Fluoroscopy time (minutes): 3.2
Sedation time (minutes): 10
CONCLUSIONS:
1. Right dominant circulation with a 40% lesion in the mid circumflex.
2. Mild to moderately elevated filling pressures (LVEDP = 16 mmHg, PCWP = 20 mmHg at 94.3 kg).
3. 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
4. Severe mitral valve regurgitation on echocardiogram.
RECOMMENDATIONS:
1. Expectant management after cardiac catheterization via right radial/antecubital approach.
2. Limited weight bearing on the right wrist for one week.
3. Guideline directed medical therapy as hemodynamics will tolerate.
4. Consultation with CT surgery regarding optimal strategy for mitral valve repair (surgical versus percutaneous).
Copy to: Jose L Gamez M.D., Ezekiel Quintanilla M.D.
Hamzah Horn DO, FACC, FACP
--- NOTE | 2023-12-11 14:03 | PTCARENOTE ---
received pt from ammunition assembly laborer via bed, accompanied by ammunition assembly laborer staff x2. Pt AAO x3, JOHN. VSS. Telemetry:NSR. Rt brachial site dsg D/I; Rt radial site with TR band intact; rt radial pulse palpable; rt hand cool, dusky; sensation/ movement of
fingers(+). clinical laboratory service teacher staff at bedside made awar eof condition of pt's Rt hand; adjusted TR band. Pt denies discomfort at site. Will continue to monitor.
--- NOTE | 2023-12-11 16:28 | PTCARENOTE ---
Pt resting comfortably since return from mushroom laborer; VSS. Telemetry:NSR. Rt radial site TR band removed; site with slight ecchymosis; tegaderm dsg applied; currently intact. On room air- pulseox 94%, no SOB noted. Sultana chol low/2 Gm na diet.
Voiding in urinal without difficulty. IV NSS @ 141 ml x 3 hrs post- cath completed. Pt OOB in chair at present, no c/o. Will continue to monitor.
[2023-12-11] MEDS: LOVENOX 40 MG SC (17:34)
--- NOTE | 2023-12-11 17:34 | CM ---
KIM unable to speak with Andre today; was off the floor for an echo and cardiac cath.
--- NOTE | 2023-12-11 17:47 | W.PN.HOSP.TC ---
Addendum entered and electronically signed by Srikanth Daley MD 12/11/23 23:19:
Attending Addendum-
I saw and evaluated the patient. I reviewed the resident�s note and agree with findings and plan as documented in the resident�s note. Seen post cath. Feels great. No complaints. Denies SOB and CP currently Full 12 point ROS reviewed and negative
except as documented Exam- vitals reviewed in EMR GEN-NAD heart RRR 3/6 SM @ apex 2/6 SM @ RUSB lungs fine crackles at bases with scattered wheeze LE +2 pitting edema b/l right radial approach- bandaged Neuro AAO x 3
# Hypertensive Emergency
- resolving
- monitor BP closely
- cont new Toprol XL
- cont prn labetolol
- appreciate cards input
- monitor on tele
# BLAKE-
- improving- CR syndrome
- also received IV dye on 12/[address] scan- monitor renal function closely
- repeat BMP in am
# Acute Hypoxemic Respiratory Failure
- resolved
- multifactorial CHF and COPD
- pulm c/s for eval - appreciate input
- CT chest 12/08-
1. MODERATE to SEVERE CARDIOMEGALY suggesting a DILATED NONISCHEMIC CARDIOMYOPATHY.
2. Mild calcific atherosclerotic plaque in the coronary arteries.
3. Mild centrilobular emphysema in the upper lobes of both lungs.
4. Mild bronchial wall thickening in the lower lobes suggesting mild bronchitis.
5. Mild scarring and subsegmental atelectasis in the lower lungs.
6. 3.2 cm midline cyst in the anterior chest wall.
# COPD- new dx
- PFTS reviewed
- pulm input appreciated
- start LABA/LAMA
- duonebs prn
# Non ischemic myocardial injury
- EKG prn CP
- trend troponin- peaked .041
- cards on board
- echo 12/09- Low normal left ventricular systolic function. Left ventricular ejection fraction is 50%. ruptured chord and partial flail of
the anterior mitral valve leaflet. Severe, eccentric mitral regurgitation. Elevated PASP
# Severe MR-
- will need OR
- CT surg c/s appreciated
- pulm c/s appreciated
- right/left heart cath-12/10-
1. Dominant circulation with a 40% lesion in the mid circumflex.
2. Mild to moderately elevated filling pressures (LVEDP = 16 mmHg, PCWP = 20 mmHg at 94.3 kg).
3. 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
4. Severe mitral valve regurgitation on echocardiogram.
RECOMMENDATIONS:
1. Expectant management after cardiac catheterization via right radial/antecubital approach.
2. Limited weight bearing on the right wrist for one week.
3. Guideline directed medical therapy as hemodynamics will tolerate.
4. Consultation with CT surgery regarding optimal strategy for mitral valve repair (surgical versus percutaneous).
- ROSS 12/12
# AE HFpEF
- CHF- BNP 4820
- echo reviewed EF 50%
- cards in put appreciated
- daily weight strict i and o
- cont IV lasix BID
- b/l LE Doppler- neg for DVT
- cont lovenox
# Hypomagnesemia-
- replete
- repeat in am
# ETOH Abuse
- high risk w/d
- cont MSAS protocol
- cont MVI/Thiamine/Folate
- CM consult
- counseled re cessation and offered support
# Tobacco Abuse-
- advised/counselled re quitting
- cont nicotine patch
# Hyponatremia
- resolved
- hypervolemic
- cont diuresis
- repeat BMP in am
- DVT P- Lovenox
Time spent coordinating care, review of plan of care with resident, personally reviewed records in EMR, med rec, labs, radiology, d/w nursing cards�- 59 mins
Original Note:
Today's Communication/Plan
-
CT surgery evaluation
Monitor and replete electrolytes
Continue DuoNebs
Continue IV Lasix
Monitor I's and O's with daily weights
Assessment / Plan
Assessment / Plan
Assessment: 68-year-old male with PMHx of untreated hypertension presenting with hypertensive urgency, systolic ejection murmur and symptoms of heart failure.
Impression:
Hypertensive urgency
Acute hypoxic respiratory failure
Acute decompensated HFpEF
Chest pain
Bilateral LE edema
EtOH abuse
Tobacco abuse
Hyponatremia
Assessment and plan:
Hypertensive Urgency
-Presented with untreated hypertension.
-Resolved on as needed labetalol.
-Continue IV Lasix.
-Continue to monitor on telemetry
Acute Hypoxemic Respiratory Failure
-Improving, O2 supplementation weaned off, O2 sat 97 on room air.
-Multifactorial, decompensated HFpEF, pulmonary hypertension, reactive airway/COPD.
-CT chest 12/09/2023 with subsegmental atelectasis, mild bronchitis, mild central lobar emphysema.
-PFT 12/10/2023, with very severe COPD with significant air trapping.
-Right heart cath 12/11/2023 with pre-/post capillary pulmonary hypertension.
-Continue DuoNebs
-Pulmonology following recs appreciated.
-Continue IV Lasix
Acute decompensated HFmrEF
-Improving with IV Lasix
-Exacerbated by multiple valvular insufficiency. Likely etiology include pulmonary hypertension, fluid overload.
-TTE 12/10/2023 with severe MR, and EF 50%.
-Cardiology following
-Cardiac cath noted
-CT surgery consult to evaluate for MV repair strategy.
-Continue diuresis for now.
Chest Pain
-Resolved
-Troponin peaked at 0.041.
B/L LE Edema
-Improving.
-Component of HFmrEF.
-Peripheral vascular US with no evidence of DVT bilaterally.
-Continue IV Lasix.
-Monitor I's and O's and daily weights.
ETOH Abuse
-Drinks 4-6 drinks per night @ 20 years
-Continue MSAS protocol, score 1
-Alcohol use counseling provided.
-CM to arrange for possible rehab dispo
Tobacco Abuse-
- advised/counselled re quitting
- start nicotine patch
Hyponatremia
-Resolved with IV Lasix
-Likely dilutional hyponatremia
-Monitor electrolytes while on IV Lasix.
- DVT P- Lovenox
CODE STATUS: Full code

Data:
Echocardiography 12/10/2023:
Low normal left ventricular systolic function. Left ventricular ejection
fraction is 50%.
Thickened mitral valve leaflets. There is a ruptured chord and partial flail of
the anterior mitral valve leaflet.
Severe, eccentric mitral regurgiation.
Aortic sclerosis without stenosis. Trace aortic regurgitation is seen.
Enlarged right ventricular size. Reduced right ventricular systolic function.
Moderate tricuspid regurgitation. Moderate/severely elevated PASP. Estimated
pulmonary artery pressure of 55 mmHg assuming a right atrial pressure of 15
mmHg.
Cardiac catheterization 12/31/2023:
CONCLUSIONS:
1. Right dominant circulation with a 40% lesion in the mid circumflex.
2. Mild to moderately elevated filling pressures (LVEDP = 16 mmHg, PCWP = 20 mmHg at 94.3 kg).
3. 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
4. Severe mitral valve regurgitation on echocardiogram.
RECOMMENDATIONS:
1. Expectant management after cardiac catheterization via right radial/antecubital approach.
2. Limited weight bearing on the right wrist for one week.
3. Guideline directed medical therapy as hemodynamics will tolerate.
4. Consultation with CT surgery regarding optimal strategy for mitral valve repair (surgical versus percutaneous).
CT chest 12/09/2023:
1. MODERATE to SEVERE CARDIOMEGALY suggesting a DILATED NONISCHEMIC CARDIOMYOPATHY.
2. Mild calcific atherosclerotic plaque in the coronary arteries.
3. Mild centrilobular emphysema in the upper lobes of both lungs.
4. Mild bronchial wall thickening in the lower lobes suggesting mild bronchitis.
5. Mild scarring and subsegmental atelectasis in the lower lungs.
6. 3.2 cm midline cyst in the anterior chest wall.
Anticipated Discharge: > 48 hours
Subjective/Interval History
-
Date of Service: December 11, 2023
Patient reports feeling better today, optimistic about right heart cath, denies chest pain, palpitation, abdominal pain, headaches, fever and chills.
Objective Data
-
Labs:
Laboratory Results
07/03/24
06:46
WBC 6.1
Hgb 14.0
Hct 44.0
Plt Count 188
PT 15.3 H
INR 1.23
APTT 36.2 H
Sodium 136
Potassium 4.2
Chloride 94 L
Carbon Dioxide 35 H
BUN 27 H
Creatinine 1.3
Glucose 107 H
Calcium 10.4 H
Total Bilirubin 1.6 H
AST 22
ALT 19
Alkaline Phosphatase 61
Vital Signs:
Vital Signs
Temp Pulse Resp BP Pulse Ox
98.5 F 83 16 112/69 97
12/11/23 16:54 12/11/23 16:54 12/11/23 16:54 12/11/23 16:54 12/11/23 16:54
I&O
12/10/23 12/11/23 12/12/23
06:59 06:59 06:59
Intake Total 240 / 240 960 / 960
Output Total 3860 / 3860 2049 / 2049 1100 / 1100
Balance -3620 / -3620 -1090 / -1090 -1100 / -1100
Review of Systems
-
History Source: Patient
All other systems: Not reviewed unless documented
Constitutional: Reports No Symptoms; Denies Fever
EENT: Reports No Symptoms Reported
Respiratory: Reports Trouble Breathing; Denies Cough
Cardiac: Denies Chest Pain or Palpitations
Abdomen/GI: Reports No Symptoms
Genitourinary: Reports No Symptoms
Musculoskeletal: Reports Edema (Bilateral)
Neuro: Reports No Symptoms; Denies Dizzy or Headache
Physical Exam
-
General: No Apparent Distress and Comfortable
Respiratory: Clear to Auscultation
Cardiac: S1/S2 and Murmur
GI: Soft, Nontender and Distended
Musculoskeletal: No Clubbing, No Cyanosis, Edema, Right Lower Extrem and Edema, Left Lower Extrem
Skin: Warm and Dry
Neuro: AO x 3
Psych: Calm and Intact Judgement/Insight
Data Reviewed
-
Diagnostic Radiology: Report Reviewed by me and Discussed with Physician
CT Scan: Image personally visualized and interpreted, Report Reviewed by me and Discussed with Physician
Ultrasound: Image personally visualized and interpreted, Report Reviewed by me and Discussed with Physician
Labs: Labs Reviewed by me and Discussed with Physician
Old Records: Reviewed
[2023-12-12] MEDS: THIAMINE INJECTION 200 MG IV ×3 (00:58→15:19)
[2023-12-12 03:51] VITALS: BP 144/99
[2023-12-12 05:38] VITALS: BMI 26.1
[2023-12-12 07:03] VITALS: BP 134/94
[2023-12-12 07:44] LABS: Hematocrit 43.9 % (39.0-52.0); Hemoglobin 14.2 g/dL (13.0-18.0); Mean Corp Hgb Conc. 32.3 g/dL (33.0-37.0); Mean Corpuscular Hgb 34.4 pg (27.0-31.0); Mean Corpuscular Volume 106.3 fL (80.0-94.0); Mean Platelet Volume 10.3 fL (7.4-10.4); Platelet Count 181 10^3/uL (130-400); Red Blood Cell Count 4.13 10^6/uL (4.70-6.10); Red Cell Dist. Width 13.4 % (11.5-14.5); White Blood Cell Count 5.4 10^3/uL (4.8-10.8)
[2023-12-12 07:55] LABS: PT 15.3 Sec (11.4-14.6)
[2023-12-12 08:15] LABS: Blood Urea Nitrogen 30 mg/dl (9-20); Calcium 10.2 mg/dl (8.4-10.2); Carbon Dioxide 40 mmol/L (22-30); Chloride 91 mmol/L (98-107); Estimated Creatinine Clearance 56 ml/min; Glucose 98 mg/dl (70-99); Potassium 4.6 mmol/L (3.5-5.1); Sodium 137 mmol/L (135-145); eGFR 50.71
[2023-12-12] MEDS: NSS (PRESERVATIVE FREE) 10 ML IV (08:17)
[2023-12-12] MEDS: TOPROL XL 25 MG PO (08:17)
[2023-12-12] MEDS: FOLVITE 1 MG PO (08:17)
[2023-12-12] MEDS: SPIRIVA RESPIMAT 2.5 MCG 2 PUFF INH (08:18)
[2023-12-12] MEDS: PROTONIX IV 40 MG IV (08:18)
[2023-12-12] MEDS: LASIX 40 MG IV (08:18)
[2023-12-12] MEDS: STRIVERDI RESPIMAT 2 PUFF INH (08:18)
[2023-12-12] MEDS: LOW STRENGTH ASPIRIN 81 MG PO (08:18)
[2023-12-12] MEDS: NICODERM TRANSDERMAL 7 MG TRANSDERM (08:18)
--- NOTE | 2023-12-12 08:48 | W.PN.UPDATE ---
Addendum entered and electronically signed by YENIFER Martin 12/12/23 10:38:
Edit:
Patient was seen with Dr. Quintanilla this morning. We discussed his poor lung function and the risk of prolonged intubation after surgery and that we are still awaiting the results of a ROSS that will be scheduled for tomorrow for further planning.
Patient expressed understanding.
Original Note:
Update Note
Progress Note Update
Patient was seen with Dr. Quintanilla this morning. We discussed his poor lung function and the risk of prolonged intubation after surgery and that we are still awaiting the results of a ROSS that will be scheduled for tomorrow
--- NOTE | 2023-12-12 09:41 | W.PN.CD ---
Today's Communication / Plan
-
-Patient to undergo ROSS tomorrow to further assess mitral valve to help determine MitraClip versus MV surgery.
-NPO after midnight.
Impression / Plan
-
Background -
68-year-old male with PMHx significant for untreated HTN, and Hyperlipidemia presents malignant hypertensive emergency, and heart failure symptoms. Cardiology consulted for evaluation of a systolic murmur heard.
Impression-
Severe MR/acute decompensated Heart Failure -HFpEF.
-Continue Lasix 40 mg IV twice daily.
-proBNP-[id number].
-Untreated HTN and HLD in the past.
-sodium and fluid restriction.
-Monitor weight and I & O
-s/p right and left heart catheterization, non obstructing Coronary artery disease, 40% lesion in the mid circumflex. between OM2 and OM3 branches.
Conclusion of right and left heart catheterization -
1. Right dominant circulation with a 40% lesion in the mid circumflex.
2. Mild to moderately elevated filling pressures (LVEDP = 16 mmHg, PCWP = 20 mmHg at 94.3 kg).
3. 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
4. Severe mitral valve regurgitation on echocardiogram.
Echocardiogram- 12/10/23 -
Low normal left ventricular systolic function. LVEF - 50%
Thickened mitral valve leaflets. There is a ruptured chord and partial flail of the anterior mitral valve leaflet.
Severe, eccentric mitral regurgitation.
dilated RV with decreased function, Moderate/severely elevated PASP - 55mmhg.
-Patient to undergo ROSS tomorrow to further assess mitral valve to help determine MitraClip versus MV surgery.
-NPO after midnight.
Hypertensive Emergency
-Upon admission, BP - 160/120, with elevated troponins, end organ damage- CHF, treated with IV vasotec.
-Blood pressure is now controlled on current doses of metoprolol succinate and Lasix; continue.
Pulmonary HTN -
Likely a confluence of COPD and MR.
Physical Exam
Vital Signs/Labs
Vital Signs
Temp Pulse Resp BP Pulse Ox
97.7 F 90 14 134/94 97
12/12/23 07:03 12/12/23 08:24 12/12/23 08:24 12/12/23 08:17 12/12/23 08:24
12/11/23 12/12/23 12/13/23
06:59 06:59 06:59
Actual Weight 94.347 kg 92.136 kg
12/12/23 07:10
12/12/23 07:10
PT 15.3 Sec (11.4-14.6) H 12/12/23 07:10
INR 1.20 12/12/23 07:10
APTT 36.2 Sec (23.4-35.0) H 12/11/23 06:46
Magnesium 1.5 mg/dl (1.6-2.3) L 12/11/23 06:46
Triglycerides 51 mg/dl (10-149) 12/11/23 06:46
LDL Cholesterol, Calc 47 mg/dl 12/11/23 06:46
VLDL Cholesterol, Calc 10 mg/dl (0-30) 12/11/23 06:46
HDL Cholesterol 51 mg/dl 12/11/23 06:46
12/09/23
11:16
Cpn-J-Muvwsblieei Pept 4820
LAB Results
12/09/23 12/09/23 12/10/23
11:16 20:16 02:06
Troponin I 0.020 0.041 H* 0.030 D
12/10/23
07:48
Troponin I Cancelled
Physical Exam
Constitutional: No acute distress and Comfortable
EENT: Anicteric
Cardiovascular: Rhythm & rate is regular, Pedal edema present (2-3+), Systolic murmur present (/) and S1S2 is normal
Respiratory: Respiratory effort normal and Lungs clear to auscul.
GI: Soft
Neuro/Psych: AO x 3
Other: Skin (Warm, dry, intact)
Data Reviewed
-
Date of Service: December 12, 2023
EKG: Tracing Personally Visualized and interpreted (Telemetry: Sinus rhythm)
Echo: Report Reviewed by me (EF 50%; severe MR)
Medical Tests (PFT, Pathology etc): Discussed with Patient
Labs: Labs Reviewed by me
[2023-12-12 10:09] LABS: Magnesium 1.6 mg/dl (1.6-2.3); Phosphorus 3.4 mg/dl (2.5-4.5)
[2023-12-12 11:36] VITALS: BP 121/84
--- NOTE | 2023-12-12 14:36 | W.PN.HOSP.TC ---
Addendum entered and electronically signed by Srikanth Daley MD 12/12/23 18:17:
Attending Addendum-
I saw and evaluated the patient. I reviewed the resident�s note and agree with findings and plan as documented in the resident�s note. No complaints. 'Sangeeta never felt this good!' Denies SOB and CP currently Full 12 point ROS reviewed and negative
except as documented Exam- vitals reviewed in EMR GEN-NAD heart RRR 3/6 SM @ apex 2/6 SM @ RUSB lungs fine crackles at bases with scattered wheeze LE +1 pitting edema b/l right radial approach- bandaged Neuro AAO x 3
# Hypertensive Emergency
- resolved
- monitor BP closely
- cont new Toprol XL
- cont prn labetolol
- appreciate cards input
- monitor on tele
# BLAKE-
- worsened
- CR syndrome and lasix
- decrease lasix to IV daily
- also received IV dye on 12/[address] scan and 12/10 for cath- monitor renal function closely
- repeat BMP in am
# Acute Hypoxemic Respiratory Failure
- resolved
- multifactorial CHF and COPD
- pulm c/s for eval - appreciate input
- CT chest 12/08-
1. MODERATE to SEVERE CARDIOMEGALY suggesting a DILATED NONISCHEMIC CARDIOMYOPATHY.
2. Mild calcific atherosclerotic plaque in the coronary arteries.
3. Mild centrilobular emphysema in the upper lobes of both lungs.
4. Mild bronchial wall thickening in the lower lobes suggesting mild bronchitis.
5. Mild scarring and subsegmental atelectasis in the lower lungs.
6. 3.2 cm midline cyst in the anterior chest wall.
# COPD- new dx
- PFTS reviewed
- pulm input appreciated
- start LABA/LAMA
- duonebs prn
# Non ischemic myocardial injury
- EKG prn CP
- trend troponin- peaked .041
- cards on board
- echo 12/09- Low normal left ventricular systolic function. Left ventricular ejection fraction is 50%. ruptured chord and partial flail of
the anterior mitral valve leaflet. Severe, eccentric mitral regurgitation. Elevated PASP
# Severe MR-
- CT surg c/s appreciated
- pulm c/s appreciated
- right/left heart cath-12/10-
1. Dominant circulation with a 40% lesion in the mid circumflex.
2. Mild to moderately elevated filling pressures (LVEDP = 16 mmHg, PCWP = 20 mmHg at 94.3 kg).
3. 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
4. Severe mitral valve regurgitation on echocardiogram.
RECOMMENDATIONS:
1. Expectant management after cardiac catheterization via right radial/antecubital approach.
2. Limited weight bearing on the right wrist for one week.
3. Guideline directed medical therapy as hemodynamics will tolerate.
4. Consultation with CT surgery regarding optimal strategy for mitral valve repair (surgical versus percutaneous).
- ROSS 12/12 - NPO p MN
# AE HFpEF
- CHF- BNP 4820
- echo reviewed EF 50%
- cards in put appreciated
- daily weight strict i and o
- decrease to IV lasix daily
- b/l LE Doppler- neg for DVT
- cont lovenox
# Hypomagnesemia-
- replete
- repeat in am
# ETOH Abuse
- high risk w/d
- cont MSAS protocol- 1
- cont MVI/Thiamine/Folate
- CM consult
- counseled re cessation and offered support
# Tobacco Abuse-
- advised/counselled re quitting
- cont nicotine patch
# Hyponatremia
- mild
- hypervolemic
- cont diuresis
- repeat BMP in am
- DVT P- Lovenox
Time spent coordinating care, review of plan of care with resident, personally reviewed records in EMR, med rec, labs, radiology, d/w nursing cards�- 53 mins
Original Note:
Today's Communication/Plan
-
BLAKE, Lasix decreased from twice daily to once a day.
Assessment / Plan
Assessment / Plan
Assessment: 68-year-old male with PMHx of untreated hypertension presenting with hypertensive urgency, systolic ejection murmur and symptoms of heart failure.
Impression:
Hypertensive urgency
Acute hypoxic respiratory failure
Acute decompensated HFpEF
Chest pain
Bilateral LE edema
EtOH abuse
Tobacco abuse
Hyponatremia
Assessment and plan:
Hypertensive Urgency
-Presented with untreated hypertension.
-Resolved on as needed labetalol for systolic greater than 170, and metoprolol XL 25 p.o. once a day.
-Continue to monitor on telemetry
Acute Hypoxemic Respiratory Failure
-Improving, O2 supplementation weaned off, O2 sat 95 on room air.
-Multifactorial, decompensated HFpEF, pulmonary hypertension, reactive airway/COPD.
-CT chest 12/09/2023 with subsegmental atelectasis, mild bronchitis, mild central lobar emphysema.
-PFT 12/10/2023, with very severe COPD with significant air trapping.
-Right heart cath 12/11/2023 with pre-/post capillary pulmonary hypertension.
-DuoNebs were increased to 3 times daily
-Pulmonology following, and will follow the patient as outpatient.
-Continue IV diuresis
Acute decompensated HFmrEF
-Improving with IV Lasix
-ROSS planned for tomorrow. Patient will be kept n.p.o. after midnight.
-Exacerbated by multiple valvular insufficiency. Likely etiology include pulmonary hypertension, fluid overload.
-TTE 12/10/2023 with severe MR, and EF 50%.
-Cardiology following
-CT surgery consult to evaluate for MV repair strategy.
-Continue diuresis for now.
BLAKE
-Creatinine increased from 1.3-1.5
-Likely secondary to cardiac catheterization patient had on 12/11/2023
-Cardiology was consulted and on recommendations regarding IV diuresis
-Cardiology recommended decreasing diuresis from 40 mg twice daily to 40 mg once a day.
Chest Pain
-Resolved
-Troponin peaked at 0.041.
B/L LE Edema
-Improving.
-Component of HFmrEF.
-Peripheral vascular US with no evidence of DVT bilaterally.
-Continue IV Lasix.
-Monitor I's and O's and daily weights.
ETOH Abuse
-Drinks 4-6 drinks per night @ 20 years
-Continue MSAS protocol, score 1
-Alcohol use counseling provided.
-CM to arrange for possible rehab dispo
Tobacco Abuse-
- advised/counselled re quitting
- start nicotine patch
Hyponatremia
-Resolved with IV Lasix
-Likely dilutional hyponatremia
-Monitor electrolytes with daily CBC
- DVT P- Lovenox
CODE STATUS: Full code

Data:
Echocardiography 12/10/2023:
Low normal left ventricular systolic function. Left ventricular ejection
fraction is 50%.
Thickened mitral valve leaflets. There is a ruptured chord and partial flail of
the anterior mitral valve leaflet.
Severe, eccentric mitral regurgiation.
Aortic sclerosis without stenosis. Trace aortic regurgitation is seen.
Enlarged right ventricular size. Reduced right ventricular systolic function.
Moderate tricuspid regurgitation. Moderate/severely elevated PASP. Estimated
pulmonary artery pressure of 55 mmHg assuming a right atrial pressure of 15
mmHg.
Cardiac catheterization 12/31/2023:
CONCLUSIONS:
1. Right dominant circulation with a 40% lesion in the mid circumflex.
2. Mild to moderately elevated filling pressures (LVEDP = 16 mmHg, PCWP = 20 mmHg at 94.3 kg).
3. 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
4. Severe mitral valve regurgitation on echocardiogram.
RECOMMENDATIONS:
1. Expectant management after cardiac catheterization via right radial/antecubital approach.
2. Limited weight bearing on the right wrist for one week.
3. Guideline directed medical therapy as hemodynamics will tolerate.
4. Consultation with CT surgery regarding optimal strategy for mitral valve repair (surgical versus percutaneous).
CT chest 12/09/2023:
1. MODERATE to SEVERE CARDIOMEGALY suggesting a DILATED NONISCHEMIC CARDIOMYOPATHY.
2. Mild calcific atherosclerotic plaque in the coronary arteries.
3. Mild centrilobular emphysema in the upper lobes of both lungs.
4. Mild bronchial wall thickening in the lower lobes suggesting mild bronchitis.
5. Mild scarring and subsegmental atelectasis in the lower lungs.
6. 3.2 cm midline cyst in the anterior chest wall.
Anticipated Discharge: > 48 hours
Subjective/Interval History
-
Date of Service: December 12, 2023
No acute events overnight
Objective Data
-
Labs:
Laboratory Results
12/12/23
07:10
WBC 5.4
Hgb 14.2
Hct 43.9
Plt Count 181
PT 15.3 H
INR 1.20
Sodium 137
Potassium 4.6
Chloride 91 L
Carbon Dioxide 40 H
BUN 30 H
Creatinine 1.5 H
Glucose 98
Calcium 10.2
Vital Signs:
Vital Signs
Temp Pulse Resp BP Pulse Ox
97.8 F 83 18 121/84 97
12/12/23 11:36 12/12/23 11:36 12/12/23 11:36 12/12/23 11:36 12/12/23 11:36
I&O
12/11/23 12/12/23 12/13/23
06:59 06:59 06:59
Intake Total 960 / 960 1360 / 1360
Output Total 2049 / 2049 3800 / 3800
Balance -1090 / -1090 -2440 / -2440
Review of Systems
-
History Source: Patient
Constitutional: Reports Weight Loss (10 kg weight loss, fluid)
Respiratory: Reports No Symptoms; Denies Trouble Breathing
Cardiac: Reports Chest Pain; Denies Diaphoresis or Palpitations
Abdomen/GI: Reports No Symptoms; Denies Nausea, Vomiting or Diarrhea
Genitourinary: Reports No Symptoms
Musculoskeletal: Reports Edema
Physical Exam
-
General: Well Developed, No Apparent Distress and Comfortable
Respiratory: Wheezes and Crackles
Cardiac: Regular Rhythm, S1/S2 and Murmur
GI: Soft, Nontender and Distended
Neuro: Awake, Alert, Oriented, AO x 3 and No Motor Deficits
Psych: Calm
Data Reviewed
-
Labs: Labs Reviewed by me and Discussed with Physician
--- NOTE | 2023-12-12 14:55 | W.PN.PUL3 ---
Today's Communication / Plan
-
Continue maintenance inhaler therapy
Await ROSS
DVT prophylaxis
Diuresis
Assessment
-
Assessment: 68-year-old male with a past medical history of hypertension and hyperlipidemia presented with SOB X 2 weeks with significant lower extremity swelling and weight gain. Also endorsed occasional chest pain. Patient has not seen a doctor
in years hence past medical history is limited. He appeared volume overloaded on exam and was hypertensive initially to 160/115, with heart rate 129 and saturating 95% on room air. Dx with acute heart failure and he was given Vasotec IV X1 + Lasix
in the ER and admitted to the hospitalist service for further care with cardiology consulted. CXR showed cardiomegaly with left hemidiaphragm elevation, and CT of the chest showed centrilobular emphysema with moderate to severe cardiomegaly and
global cardiac chamber enlargement. TTE showed severe acute eccentric MR with ruptured chordae and partial flail of anterior MV leaflet seen on TTE. Cardiothoracic surgery consulted, and preoperative PFT performed on 12/10/2023 showed very severe
COPD with significant BD response, significant air trapping, very severe gas exchange capacity defect as well as very severe restrictive lung defect. He underwent left and right heart catheterization today showing right dominant circulation with
40% lesion in the mid circumflex, with elevated LVEDP at 16 mmHg with PCWP 20 mmHg, with severe MR seen on echo from yesterday. Pulmonary now consulted for additional management of his COPD as well as preoperative pulmonary optimization.
Chronic conditions [employer]USHER [employer] SHE[employer]: HTN/HLD, tobacco use disorder and alcohol use disorder
Impression:
#Very severe COPD (due to centrilobular emphysema) with air trapping
#Hypertensive urgency now improved
#Moderate�severe cardiomegaly with suggested dilated NICM from uncontrolled long-standing HTN (+/- EtOH), with mild coronary calcific atherosclerotic plaque seen on CTA chest from 12/09/2023
#Acute decompensated heart failure/acute HFpEF with severe eccentric MR with ruptured cord and partial flail of anterior MV leaflet (per TTE from 12/10/2023)
#Moderate pulmonary hypertension with mPAP: 38mmHg
#Daily alcohol use
#Tobacco use disorder
Plan/recommendations
Patient objectively and subjectively improved. Minimal wheezing noted, bronchial breath sounds
PFT noted, severe obstructive lung disease, severe gas exchange defect
Moving forward
Plan for ROSS in AM. N.p.o. after midnight
Cardiothoracic surgery following
Continues to diurese as able
Cardiology also following
Continue with maintenance inhaler therapy
Start LAMA/LABA combo with Spiriva and Striverdi, and change ATC Duonebs to prn; he should be DC'd home on either Stiolto vs Anoro ellipta with outpatient follow up (which I will arrange)
Tobacco cessation strongly encouraged and reinforced during today's encounter
- Discussed nicotine replacement therapy
- Nicotine patch for now
- He qualifies for LDCT chest for lung cancer screening purposes -considering he just had a CTA chest performed on 12/09/2023, he does not need to repeat CT chest until December 2024
DVT ppx: Enoxaparin
Pulmonary service will continue to follow along. Dr. Ruvalcaba arrange to see the patient in the office following discharge.
Data:
CTA Chest 12-09-2023:
1. MODERATE to SEVERE CARDIOMEGALY suggesting a DILATED NONISCHEMIC CARDIOMYOPATHY.
2. Mild calcific atherosclerotic plaque in the coronary arteries.
3. Mild centrilobular emphysema in the upper lobes of both lungs.
4. Mild bronchial wall thickening in the lower lobes suggesting mild bronchitis.
5. Mild scarring and subsegmental atelectasis in the lower lungs.
6. 3.2 cm midline cyst in the anterior chest wall.
[facility] 12-11-2023:
CONCLUSIONS:
1. Right dominant circulation with a 40% lesion in the mid circumflex.
2. Mild to moderately elevated filling pressures (LVEDP = 16 mmHg, PCWP = 20 mmHg at 94.3 kg).
3. 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
4. Severe mitral valve regurgitation on echocardiogram.
RECOMMENDATIONS:
1. Expectant management after cardiac catheterization via right radial/antecubital approach.
2. Limited weight bearing on the right wrist for one week.
3. Guideline directed medical therapy as hemodynamics will tolerate.
4. Consultation with CT surgery regarding optimal strategy for mitral valve repair (surgical versus percutaneous).
TTE 12-10-2023:
Low normal left ventricular systolic function. Left ventricular ejection
fraction is 50%.
Thickened mitral valve leaflets. There is a ruptured chord and partial flail of
the anterior mitral valve leaflet.
Severe, eccentric mitral regurgiation.
Aortic sclerosis without stenosis. Trace aortic regurgitation is seen.
Enlarged right ventricular size. Reduced right ventricular systolic function.
Moderate tricuspid regurgitation. Moderate/severely elevated PASP. Estimated
pulmonary artery pressure of 55 mmHg assuming a right atrial pressure of 15
mmHg.
No prior study available for comparison.
Subjective Data
-
Date of Service:
Date of Service: December 12, 2023
Subjective:
Patient seen and examined earlier this morning. Feeling much improved. Less wheeze, less chest congestion. Denies chest pain, hemoptysis, nausea, abdominal pain. Appears to be in good spirits, conversing without difficulty
Objective Data
Data Reviewed
Vital Signs / I&O / Oxygen:
Vital Signs
Temp Pulse Resp BP Pulse Ox
97.8 F 83 18 121/84 97
12/12/23 11:36 12/12/23 11:36 12/12/23 11:36 12/12/23 11:36 12/12/23 11:36
Intake and Output
12/11/23 12/12/23 12/13/23
06:59 06:59 06:59
Intake Total 960 / 960 1360 / 1360
Output Total 2049 / 2050 3800 / 3800
Balance -1090 / -1090 -2440 / -2440
SaO2 97
Nasal Cannula flow liters per 2
minute
Physical Exam
General: Comfortable
HEENT: Normocephalic and Anicteric
Cardiovascular: S1-S2, Regular Rhythm, Murmur (2/6 systolic murmur apex), Rub (n), Peripheral Edema (n) and Calf Tenderness (n)
Respiratory: Wheeze (Few scattered), Crackles (n), Rhonchi (n), Non-Labored Respirations, Stridor (n) and Other (Bronchial breath sounds, decreased)
GI: Soft, Non Distended and Non Tender
Neurology: Awake, Alert and No Motor Deficits
Skin: Cyanosis (n), Jaundice (n) and Rash (n)
Labs/Micro/Reports
Lab Data
12/12/23 07:10
12/12/23 07:10
Laboratory Results
12/12/23
07:10
PT 15.3 H
INR 1.20
[2023-12-12 15:43] VITALS: BP 121/80
[2023-12-12] MEDS: LOVENOX 40 MG SC (17:00)
[2023-12-12 19:17] VITALS: BP 131/85
[2023-12-12] MEDS: VITAMIN B1 100 MG PO (20:45)
[2023-12-12 23:47] VITALS: BP 111/65
[2023-12-13 03:26] VITALS: BP 134/92
[2023-12-13 05:48] VITALS: BMI 25.6
[2023-12-13 07:30] VITALS: BP 130/91
[2023-12-13 07:39] LABS: ALT (SGPT) 22 U/L (0-50); AST (SGOT) 26 U/L (17-59); Albumin 3.3 g/dl (3.5-5.0); Alkaline Phosphatase 57 U/L (38-126); Blood Urea Nitrogen 33 mg/dl (9-20); Carbon Dioxide 32 mmol/L (22-30); Chloride 95 mmol/L (98-107); Estimated Creatinine Clearance 64 ml/min; Glucose 101 mg/dl (70-99); Magnesium 1.6 mg/dl (1.6-2.3); Potassium 4.1 mmol/L (3.5-5.1); Sodium 135 mmol/L (135-145); Total Bilirubin 1.6 mg/dl (0.2-1.3); Total Protein 5.9 g/dl (6.3-8.2); eGFR > 60.00
[2023-12-13] MEDS: STRIVERDI RESPIMAT 2 PUFF INH (08:09)
[2023-12-13] MEDS: SPIRIVA RESPIMAT 2.5 MCG 2 PUFF INH (08:09)
[2023-12-13] MEDS: NSS (PRESERVATIVE FREE) 10 ML IV (09:06)
[2023-12-13] MEDS: PROTONIX IV 40 MG IV (09:07)
[2023-12-13] MEDS: NICODERM TRANSDERMAL 7 MG TRANSDERM (09:08)
--- NOTE | 2023-12-13 10:36 | W.PN.PUL3 ---
Today's Communication / Plan
-
ROSS done today showing severe RA dilatation with RV dysfunction, and anatomy challenging for MitraClip placement. Patient awaiting transfer to [facility] for consideration of TMVR.
Continues to Spiriva + striverdi --> DC home on either Stiolto vs Anoro ellipta with outpatient follow up
DVT prophylaxis
Diuresis
Outpatient follow-up will be arranged for full PFTs and management of COPD. No additional pulmonary recommendations at this time. Pulmonary service will now sign off. Please reconsult if there are any additional questions/concerns, or if
patient's respiratory status deteriorates.
Assessment
-
Assessment: 68-year-old male with a past medical history of hypertension and hyperlipidemia presented with SOB X 2 weeks with significant lower extremity swelling and weight gain. Also endorsed occasional chest pain. Patient has not seen a doctor
in years hence past medical history is limited. He appeared volume overloaded on exam and was hypertensive initially to 160/115, with heart rate 129 and saturating 95% on room air. Dx with acute heart failure and he was given Vasotec IV X1 + Lasix
in the ER and admitted to the hospitalist service for further care with cardiology consulted. CXR showed cardiomegaly with left hemidiaphragm elevation, and CT of the chest showed centrilobular emphysema with moderate to severe cardiomegaly and
global cardiac chamber enlargement. TTE showed severe acute eccentric MR with ruptured chordae and partial flail of anterior MV leaflet seen on TTE. Cardiothoracic surgery consulted, and preoperative PFT performed on 12/10/2023 showed very severe
COPD with significant BD response, significant air trapping, very severe gas exchange capacity defect as well as very severe restrictive lung defect. He underwent left and right heart catheterization today showing right dominant circulation with
40% lesion in the mid circumflex, with elevated LVEDP at 16 mmHg with PCWP 20 mmHg, with severe MR seen on echo from yesterday. Pulmonary now consulted for additional management of his COPD as well as preoperative pulmonary optimization.
Chronic conditions [employer]: HTN/HLD, tobacco use disorder and alcohol use disorder
Impression:
#Very severe COPD (due to centrilobular emphysema) with air trapping
#Hypertensive urgency now resolved
#Moderate�severe cardiomegaly with suggested dilated NICM from uncontrolled long-standing HTN (+/- EtOH), with mild coronary calcific atherosclerotic plaque seen on CTA chest from 12/09/2023
#Acute decompensated heart failure/acute HFpEF with severe eccentric MR with ruptured cord and partial flail of anterior MV leaflet (per TTE from 12/10/2023)
#Moderate pulmonary hypertension with mPAP: 38mmHg
#Daily alcohol use
#Tobacco use disorder
Plan/recommendations
Patient objectively and subjectively improved. Minimal wheezing noted on right hemithorax
PFT noted, very severe obstructive lung disease, severe gas exchange defect
Moving forward
ROSS done today showing severe RA dilatation with RV dysfunction, and anatomy challenging for MitraClip placement. Patient awaiting transfer to [facility] for consideration of TMVR.
Cardiothoracic surgery following and assisted in transfer to [facility]
Continues to diurese as able
Cardiology also following
Continue with maintenance inhaler therapy
Continue LAMA/LABA combo with Spiriva and Striverdi, and changed ATC Duonebs to prn; he should be DC'd home on either Stiolto vs Anoro ellipta with outpatient follow up (which I will arrange)
Tobacco cessation strongly encouraged and reinforced during today's encounter
- Discussed nicotine replacement therapy
- Nicotine patch for now
- He qualifies for LDCT chest for lung cancer screening purposes -considering he just had a CTA chest performed on 12/09/2023, he does not need to repeat CT chest until December 2024
DVT ppx: Enoxaparin
Outpatient follow-up will be arranged for full PFTs and management of COPD. No additional pulmonary recommendations at this time. Pulmonary service will now sign off. Please reconsult if there are any additional questions/concerns, or if
patient's respiratory status deteriorates.
Total time spent today was 35 minutes for this encounter. Time includes reviewing laboratory test/imaging results, reviewing pertinent medical records, obtaining and reviewing medical history, performing an appropriate exam, ordering medications,
tests and procedures. Time also includes documentation of this encounter, coordinating patient care and communicating with other healthcare professionals. Total time does not include separately billed tests performed on this date of service.
Data:
CTA Chest 12-09-2023:
1. MODERATE to SEVERE CARDIOMEGALY suggesting a DILATED NONISCHEMIC CARDIOMYOPATHY.
2. Mild calcific atherosclerotic plaque in the coronary arteries.
3. Mild centrilobular emphysema in the upper lobes of both lungs.
4. Mild bronchial wall thickening in the lower lobes suggesting mild bronchitis.
5. Mild scarring and subsegmental atelectasis in the lower lungs.
6. 3.2 cm midline cyst in the anterior chest wall.
[facility]/RH 12-11-2023:
CONCLUSIONS:
1. Right dominant circulation with a 40% lesion in the mid circumflex.
2. Mild to moderately elevated filling pressures (LVEDP = 16 mmHg, PCWP = 20 mmHg at 94.3 kg).
3. 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
4. Severe mitral valve regurgitation on echocardiogram.
RECOMMENDATIONS:
1. Expectant management after cardiac catheterization via right radial/antecubital approach.
2. Limited weight bearing on the right wrist for one week.
3. Guideline directed medical therapy as hemodynamics will tolerate.
4. Consultation with CT surgery regarding optimal strategy for mitral valve repair (surgical versus percutaneous).
TTE 12-10-2023:
Low normal left ventricular systolic function. Left ventricular ejection
fraction is 50%.
Thickened mitral valve leaflets. There is a ruptured chord and partial flail of
the anterior mitral valve leaflet.
Severe, eccentric mitral regurgiation.
Aortic sclerosis without stenosis. Trace aortic regurgitation is seen.
Enlarged right ventricular size. Reduced right ventricular systolic function.
Moderate tricuspid regurgitation. Moderate/severely elevated PASP. Estimated
pulmonary artery pressure of 55 mmHg assuming a right atrial pressure of 15
mmHg.
No prior study available for comparison.
Subjective Data
-
Date of Service:
Date of Service: December 13, 2023
Chief Complaint: Pulmonary Follow Up
Subjective:
ROSS done today showing severe RA dilatation with RV dysfunction, and anatomy challenging for MitraClip placement. Patient awaiting transfer to [facility] for consideration of TMVR. Patient otherwise feels very good, denies any shortness of breath,
walking around his room clearly in no distress or tachypnea seen. He is on room air breathing comfortably. No overnight events reported. He denies chest pain, headache, abdominal pain, fevers or chills.
Review of Systems
General: Other (Negative unless mentioned above)
Objective Data
Data Reviewed
Vital Signs / I&O / Oxygen:
Vital Signs
Temp Pulse Resp BP Pulse Ox
97.3 F 86 16 130/91 98
12/13/23 07:30 12/13/23 07:30 12/13/23 08:13 12/13/23 07:30 12/13/23 09:00
Intake and Output
12/12/23 12/13/23 12/14/23
06:59 06:59 06:59
Intake Total 1360 / 1360 910 / 910
Output Total 3800 / 3800 2100 / 2100
Balance -2440 / -2440 -1190 / -1190
SaO2 98
Nasal Cannula flow liters per 2
minute
Physical Exam
General: Comfortable
HEENT: Normocephalic and Anicteric
Cardiovascular: S1-S2, Murmur (2/6 systolic murmur apex + left fifth intercostal space), Rub (n), Peripheral Edema (+2 lower extremity pitting edema) and Calf Tenderness (n)
Respiratory: Wheeze (Few scattered on right hemithorax), Crackles (n), Rhonchi (n), Non-Labored Respirations and Stridor (n)
GI: Soft, Non Distended and Non Tender
Neurology: AO x 3 and Tremors (n)
Skin: Warm, Dry, Cyanosis (n), Jaundice (n) and Rash (n)
Labs/Micro/Reports
Lab Data
12/12/23 07:10
12/13/23 06:50
--- NOTE | 2023-12-13 10:47 | W.PN.CD ---
Addendum entered and electronically signed by Xavier Waller MD 12/13/23 12:08:
Following ROSS, images were reviewed with CT surgery. Patient is very high risk for OR with severe COPD and RV dysfunction. Anatomy will be challenging for MitraClip. Reviewed with [facility] advanced HF team. He will be transferred to [facility] for
consideration of TMVR.
Discussed with patient and sister at bedside.
Discussed with hospitalist team.
Total time spent today 50 minutes.
Original Note:
Today's Communication / Plan
-
PO diuretic
eval for MitraClip will continue as outpatient
we will arrange for outpatient follow up with us
please call us with additional questions
Impression / Plan
-
Background -
68-year-old male with PMHx significant for untreated HTN, and Hyperlipidemia presents malignant hypertensive emergency, and heart failure symptoms. Cardiology consulted for evaluation of a systolic murmur heard.
# Acute HF
-LVEF is 50%; he also has RV failure in setting of severe COPD
-transition to PO diuretic
# Severe MR
-very high risk surgical candidate with severe COPD
-eval for MitraClip will continue as outpatient
# Non-obstructive CAD
-cont ASA 81mg daily
-LDL is 47 without meds
# Tobacco abuse
-to use patch to quit
DATA
Conclusion of right and left heart catheterization -
1. Right dominant circulation with a 40% lesion in the mid circumflex.
2. Mild to moderately elevated filling pressures (LVEDP = 16 mmHg, PCWP = 20 mmHg at 94.3 kg).
3. 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
4. Severe mitral valve regurgitation on echocardiogram.
Echocardiogram- 12/10/23 -
Low normal left ventricular systolic function. LVEF - 50%
Thickened mitral valve leaflets. There is a ruptured chord and partial flail mitral valve leaflet.
Severe, eccentric mitral regurgitation.
dilated RV with decreased function, Moderate/severely elevated PASP - 55mmhg.
Physical Exam
Vital Signs/Labs
Vital Signs
Temp Pulse Resp BP Pulse Ox
97.3 F 86 16 130/91 98
12/13/23 07:30 12/13/23 07:30 12/13/23 08:13 12/13/23 07:30 12/13/23 09:00
12/12/23 12/13/23 12/14/23
06:59 06:59 06:59
Actual Weight 92.136 kg 90.463 kg
12/12/23 07:10
12/13/23 06:50
PT 15.3 Sec (11.4-14.6) H 12/12/23 07:10
INR 1.20 12/12/23 07:10
APTT 36.2 Sec (23.4-35.0) H 12/11/23 06:46
Magnesium 1.6 mg/dl (1.6-2.3) 12/13/23 06:50
Triglycerides 51 mg/dl (10-149) 12/11/23 06:46
LDL Cholesterol, Calc 47 mg/dl 12/11/23 06:46
VLDL Cholesterol, Calc 10 mg/dl (0-30) 12/11/23 06:46
HDL Cholesterol 51 mg/dl 12/11/23 06:46
12/09/23
11:16
Icn-V-Tidynhzaxms Pept 4820
Physical Exam
Constitutional: No acute distress and Comfortable
EENT: Moist mucous membranes
Cardiovascular: Rhythm & rate is regular, Pedal edema present, JVD present and Systolic murmur present
Respiratory: Respiratory effort normal and Other (poor air movement)
GI: Soft and Distention absent
Neuro/Psych: AO x 3
Data Reviewed
-
Date of Service: December 13, 2023
EKG: Other (Tele: ST)
Labs: Labs Reviewed by me
--- NOTE | 2023-12-13 11:07 | W.PN.HOSP.TC ---
Addendum entered and electronically signed by Srikanth Daley MD 12/13/23 21:38:
Attending Addendum-
I saw and evaluated the patient. I reviewed the resident�s note and agree with findings and plan as documented in the resident�s note. No complaints. Seen post ROSS. Still with residual anestesia effects. Feels well. 'Im going to [facility]' Seen with
sister present. Denies SOB and CP currently Full 12 point ROS reviewed and negative except as documented Exam- vitals reviewed in EMR GEN-NAD heart RRR 08/13 SM @ apex thrill present, 08/13 SM @ RUSB lungs fine crackles at bases with scattered wheeze LE
+1 pitting edema b/l right radial approach- bandaged Neuro AAO x 3
# Severe MR-
- CT surg c/s appreciated
- right/left heart cath-12/10-
1. Dominant circulation with a 40% lesion in the mid circumflex.
2. Mild to moderately elevated filling pressures (LVEDP = 16 mmHg, PCWP = 20 mmHg at 94.3 kg).
3. 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
4. Severe mitral valve regurgitation on echocardiogram.
- ROSS 12/12 - Left ventricle is mildly dilated. Normal left ventricular systolic function.
Left ventricular ejection fraction is 50-55%.
Prolapse and partial flail of the posterior mitral valve leaflet at P3. Severe,
eccentric mitral regurgitation.
Dilated RV with moderate/severely reduced RV function.
Moderate tricuspid regurgitation.
- transfer to [facility] for MVR vs mitraclip- initiated accepting physician Kusum Julien
- appreciate cards involvement in facilitating transfer
# AE HFpEF
- CHF- BNP 4820
- echo reviewed EF 50%
- cards in put appreciated
- daily weight strict i and o
- transition to PO lasix in am
- cont lovenox
# Hypertensive Emergency
- resolved
- monitor BP closely
- cont new Toprol XL
- appreciate cards input
- monitor on tele
# BLAKE-
- improved
- CR syndrome and lasix
- transition to PO lasix in am
- also received IV dye on 12/[address] scan and 12/10 for cath- monitor renal function closely
- repeat BMP in am
# Acute Hypoxemic Respiratory Failure
- resolved
- multifactorial CHF and COPD
- pulm c/s for eval - appreciate input
# COPD- new dx
- pulm input appreciated
- cont LABA/LAMA
- duonebs prn
# Non ischemic myocardial injury
- trend troponin- peaked .041
- cards on board
- echo 12/09- Low normal left ventricular systolic function. Left ventricular ejection fraction is 50%. ruptured chord and partial flail of
the anterior mitral valve leaflet. Severe, eccentric mitral regurgitation. Elevated PASP
# Hypomagnesemia-
- replete
- repeat in am
# ETOH Abuse
- no s/s of w/d
- DC MSAS
- cont MVI/Thiamine/Folate
- CM consult
- counseled re cessation and offered support
# Tobacco Abuse-
- advised/counselled re quitting
- cont nicotine patch
# Hyponatremia
- resolved
- hypervolemic
- cont diuresis
- repeat BMP in am
- DVT P- Lovenox
Dispo- transfer to [facility] when bed available
Time spent coordinating care, review of plan of care with resident, transfer planning, personally reviewed records in EMR, med rec, labs, radiology, d/w nursing , sister, cards�- 65 mins
Original Note:
Today's Communication/Plan
-
ROSS planned for today
Assessment / Plan
Assessment / Plan
Assessment: 68-year-old male with PMHx of untreated hypertension presenting with hypertensive urgency, systolic ejection murmur and symptoms of heart failure.
Impression:
Hypertensive urgency
Acute hypoxic respiratory failure
Acute decompensated HFpEF
Chest pain
Bilateral LE edema
EtOH abuse
Tobacco abuse
Hyponatremia
Assessment and plan:
Hypertensive Urgency
-Presented with untreated hypertension.
-Resolved on as needed labetalol for systolic greater than 170, and metoprolol XL 25 p.o. once a day.
-Continue to monitor on telemetry
Acute Hypoxemic Respiratory Failure
-Improving, O2 supplementation weaned off, O2 sat 95 on room air.
-Multifactorial, decompensated HFpEF, pulmonary hypertension, reactive airway/COPD.
-CT chest 12/09/2023 with subsegmental atelectasis, mild bronchitis, mild central lobar emphysema.
-PFT 12/10/2023, with very severe COPD with significant air trapping.
-Right heart cath 12/11/2023 with pre-/post capillary pulmonary hypertension.
-DuoNebs were increased to 3 times daily
-Pulmonology following, and will follow the patient as outpatient.
-Continue IV diuresis
Acute decompensated HFmrEF
-Improving with IV Lasix
-Continue diuresis for now.
-ROSS was undergone today
-Exacerbated by multiple valvular insufficiency. Likely etiology include pulmonary hypertension, fluid overload.
-TTE 12/10/2023 with severe MR, and EF 50%.
-Cardiology following
-Patient will be transferred to [place], under the care of Dr. Kusum Juilen, for his mitral valve repair.
-Transfer was initiated pertinent scans were also sent over by cardiology.
BLAKE
-Creatinine decreased from 1.5-1.3
-Resolved
-Cardiology was consulted and on recommendations regarding IV diuresis
Patient will be kept on 40 mg IV Lasix once today.
Chest Pain
-Resolved
-Troponin peaked at 0.041.
B/L LE Edema
-Improving.
-Component of HFmrEF.
-Peripheral vascular US with no evidence of DVT bilaterally.
-Continue IV Lasix.
-Monitor I's and O's and daily weights.
ETOH Abuse
-Drinks 4-6 drinks per night @ 20 years
-Continue MSAS protocol, score 1
-Alcohol use counseling provided.
-CM to arrange for possible rehab dispo
Tobacco Abuse-
- advised/counselled re quitting
- start nicotine patch
Hyponatremia
-135 today, stable
-Resolved
-Likely dilutional hyponatremia
-Monitor electrolytes with daily CBC
- DVT P- Lovenox
CODE STATUS: Full code

Data:
Echocardiography 12/10/2023:
Low normal left ventricular systolic function. Left ventricular ejection
fraction is 50%.
Thickened mitral valve leaflets. There is a ruptured chord and partial flail of
the anterior mitral valve leaflet.
Severe, eccentric mitral regurgiation.
Aortic sclerosis without stenosis. Trace aortic regurgitation is seen.
Enlarged right ventricular size. Reduced right ventricular systolic function.
Moderate tricuspid regurgitation. Moderate/severely elevated PASP. Estimated
pulmonary artery pressure of 55 mmHg assuming a right atrial pressure of 15
mmHg.
Cardiac catheterization 12/31/2023:
CONCLUSIONS:
1. Right dominant circulation with a 40% lesion in the mid circumflex.
2. Mild to moderately elevated filling pressures (LVEDP = 16 mmHg, PCWP = 20 mmHg at 94.3 kg).
3. 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
4. Severe mitral valve regurgitation on echocardiogram.
RECOMMENDATIONS:
1. Expectant management after cardiac catheterization via right radial/antecubital approach.
2. Limited weight bearing on the right wrist for one week.
3. Guideline directed medical therapy as hemodynamics will tolerate.
4. Consultation with CT surgery regarding optimal strategy for mitral valve repair (surgical versus percutaneous).
CT chest 12/09/2023:
1. MODERATE to SEVERE CARDIOMEGALY suggesting a DILATED NONISCHEMIC CARDIOMYOPATHY.
2. Mild calcific atherosclerotic plaque in the coronary arteries.
3. Mild centrilobular emphysema in the upper lobes of both lungs.
4. Mild bronchial wall thickening in the lower lobes suggesting mild bronchitis.
5. Mild scarring and subsegmental atelectasis in the lower lungs.
6. 3.2 cm midline cyst in the anterior chest wall.
Anticipated Discharge: > 48 hours
Subjective/Interval History
-
Date of Service: December 13, 2023
ROSS performed today
Objective Data
-
Labs:
Laboratory Results
12/13/23
06:50
Sodium 135
Potassium 4.1
Chloride 95 L
Carbon Dioxide 32 H
BUN 33 H
Creatinine 1.3
Glucose 101 H
Calcium 10.0
Total Bilirubin 1.6 H
AST 26
ALT 22
Alkaline Phosphatase 57
Vital Signs:
Vital Signs
Temp Pulse Resp BP Pulse Ox
97.3 F 86 16 130/91 98
12/13/23 07:30 12/13/23 07:30 12/13/23 08:13 12/13/23 07:30 12/13/23 09:00
I&O
12/12/23 12/13/23 12/14/23
06:59 06:59 06:59
Intake Total 1360 / 1360 910 / 910
Output Total 3800 / 3800 2100 / 2100
Balance -2440 / -2440 -1190 / -1190
Data Reviewed
-
Ultrasound: Report Reviewed by me and Discussed with Physician
Labs: Labs Reviewed by me and Discussed with Physician
[2023-12-13 11:14] VITALS: BP 130/88
[2023-12-13] MEDS: FOLVITE 1 MG PO (11:24)
[2023-12-13] MEDS: LOW STRENGTH ASPIRIN 81 MG PO (11:25)
[2023-12-13] MEDS: TOPROL XL 25 MG PO (11:26)
[2023-12-13] MEDS: VITAMIN B1 100 MG PO ×2 (11:28→20:11)
--- NOTE | 2023-12-13 11:40 | W.PN.UPDATE ---
Update Note
Progress Note Update
Patient's ROSS was reviewed by Dr. Quintanilla. Severe RA dilatation and RV dysfunction observed. The patient is at high risk for surgical intervention and may require mechanical support post-operatively. Case was discussed with colleagues at [facility]
[place] and he will likely be transferred for a TMVR. Patient was accepted by Dr. Julien, bed assignment pending.
--- NOTE | 2023-12-13 15:07 | CM ---
CM advised of patient being transferred to [facility] for procedure (TMVR). Pt will need cardiac monitoring. [facility] and Transport form completed and provided to Manager [employer].
Report already provided by RN; [facility] will call the unit directly when ready for patient to transfer.
[2023-12-13 15:59] VITALS: BP 129/82
[2023-12-13] MEDS: LASIX 40 MG PO (16:00)
--- NOTE | 2023-12-13 17:19 | W.DCSUMMARY ---
Addendum entered and electronically signed by Srikanth Daley MD 12/14/23 23:52:
Read, reviewed, and agree. See same day progress note for additional details. DC delayed until 12/13 due to bed availability at [facility].
Heron Daley MD
Original Note:
Documented by User: Diego Roberts DO, Resident 12/13/23 18:59
Discharge Summary
Discharge Data
Date of Admission: 12/09/23
Date of Discharge: 12/13/23
-
Pending Results: No
Hospital Course
Discharging Physician : Edi Roberts
Disposition : [facility]
Primary care physician : [facility] residency clinic
Principal Discharge diagnosis : Hypertensive urgency
Chronic Discharge diagnosis : Severe mitral regurgitation, acute hypoxic respiratory failure, lower extremity edema, hyponatremia, alcohol abuse, tobacco abuse, COPD
Hospital Course : 68-year-old male presented to the emergency department for hypertensive urgency from local urgent care. Patient reports worsening shortness of breath for the last 2 weeks with significant lower extremity swelling and 20 pound
weight gain as well as intermittent chest pain. Patient has not seen a physician in years. Patient reports drinking 4 shots of vodka every day for the past 30 years and smoking half pack cigarettes daily. On arrival to the ED his blood pressure
was 166/105 tachycardic severely tachypneic. proBNP was elevated at 4820. Troponins were elevated at 0.020, which later peaked at 0.041, chest x-ray was remarkable for left bibasilar subsegmental atelectasis with mild cardiomegaly. In the ED
patient received single dose of nitroglycerin 0.5 mg and furosemide 80 mg. Patient was admitted to telemetry for monitoring and diuresis. Patient was started on 40 mg of IV Lasix twice daily. On 12 09 at 240 6 in the morning patient was noted to
have intermittent chest pain overnight nonradiating CTA was ordered to rule out PE, CTA was negative. During the course of his stay patient was noted to have multiple electrolyte abnormalities including hypomagnesemia, hyponatremia as well as an
BLAKE, all of which resolved. Cardiology was consulted and an echocardiogram was performed. It was found that he is in heart failure with severe mitral regurg. Ejection fraction was 50% mitral regurg was due to a ruptured chordae tendon. CT
surgery was consulted regarding the torn chordae tendon. during his stay patient also had a cardiac catheterization which showed pulmonary hypertension and 40% lesion in the mid circumflex. After his cardiac cath patient developed a acute kidney
injury his IV Lasix was decreased to 40 once a day. Over the course of his stay patient lost over 10 kg of fluid. Pulmonology was consulted and pulmonary function test were performed in the department. FEV1 over FVC ratio was 52. Patient was
diagnosed with very severe COPD with significant bronchodilator response. As well as a severe restrictive lung disease. Significant air trapping and severe gas exchange capacity deficit. Patient also received a transesophageal echocardiogram for
CT surgery planning. After his ROSS it was noted that the patient is high risk for surgical intervention and may require mechanical support postop, case was discussed with colleagues at [facility] and he will be transferred for a T
MVR. Patient will be transferred to Dr. Kusum Julien a [place] CT surgeon. Relevant scans were coordinated and transferred to [place] by Dr. Waller, ink printer.
Important imaging findings :
12/09/2023 chest x-ray, impression:
1. Mild elevation of left hemidiaphragm, with suspected left basilar subsegmental atelectasis.
2. Mild cardiomegaly.
12/09/2023 chest CTA with IV contrast, impressions:
1. MODERATE to SEVERE CARDIOMEGALY suggesting a DILATED NONISCHEMIC CARDIOMYOPATHY.
2. Mild calcific atherosclerotic plaque in the coronary arteries.
3. Mild centrilobular emphysema in the upper lobes of both lungs.
4. Mild bronchial wall thickening in the lower lobes suggesting mild bronchitis.
5. Mild scarring and subsegmental atelectasis in the lower lungs.
6. 3.2 cm midline cyst in the anterior chest wall
12/10/2023 echocardiogram, impressions:
Low normal left ventricular systolic function. Left ventricular ejection
fraction is 50%.
Thickened mitral valve leaflets. There is a ruptured chord and partial flail of
the anterior mitral valve leaflet.
Severe, eccentric mitral regurgitation.
Aortic sclerosis without stenosis. Trace aortic regurgitation is seen.
Enlarged right ventricular size. Reduced right ventricular systolic function.
Moderate tricuspid regurgitation. Moderate/severely elevated PASP. Estimated
pulmonary artery pressure of 55 mmHg assuming a right atrial pressure of 15
mmHg.
12/10/2023 peripheral venous ultrasound lower extremities, impressions:
No evidence of deep venous thrombosis of the lower extremities bilaterally.
12/10/2023 Panelipse (orthopantomogram), impressions:
No radiographic evidence for dental abscess.
Procedure findings :
12/11/2023 cardiac catheterization, impressions:
1. Right dominant circulation with a 40% lesion in the mid circumflex.
2. Mild to moderately elevated filling pressures (LVEDP = 16 mmHg, PCWP = 20 mmHg at 94.3 kg).
3. 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
4. Severe mitral valve regurgitation on echocardiogram.
12/11/2023 carotid ultrasound, impressions:
Mild calcified plaque bilateral carotid bulbs and proximal right internal carotid artery. Velocity profile consistent with less than 50% bilateral internal carotid artery stenosis. Antegrade flow bilateral vertebral arteries.
Discharge Plan
-
Patient Disposition: Acute Care Hospital
Condition: Fair
Discharge Orders:
Discharge Patient (As Directed); Ordered 12/14/23
Ordered By: Diego Roberts
Discharge Date and Time
Discharge Date/Time: 12/14/23 22:09
Print Language: [place]ORE[place]

Documented by User: Srikanth Daley MD 12/14/23 23:46
Discharge Summary
Discharge Data
Date of Admission: 12/09/23
Date of Discharge: 12/14/23
Discharge Plan
-
Patient Disposition: [facility]
Condition: Fair
Discharge Orders:
Discharge Patient (As Directed); Ordered 12/14/23
Ordered By: Diego Roberts
Discharge Date and Time
Discharge Date/Time: 12/14/23 22:09
Print Language: [place]
[2023-12-13] MEDS: LOVENOX 40 MG SC (17:39)
--- NOTE | 2023-12-13 18:01 | PTCARENOTE ---
Received patient this am AAOx3. Pt NPO this am for ROSS. IV Lasix held this am secondary to patient going for ROSS, discussed with Dr. Waller. Pt started on PO Lasix at 1600. Pt OOB ambulating independently with a steady gait. Pt sent to dentures lab technician this
am for ROSS. Pt returned to unit. VSS Pt AAOx3. Offered no complaints. Plan is for patient to transfer to [facility] for Mitral Valve Surgery. Report given to [facility]. Awaiting for a bed at [facility].Cont to assess patient status.
[2023-12-13 19:27] VITALS: BP 122/69
[2023-12-13 23:20] VITALS: BP 118/76
--- NOTE | 2023-12-14 01:41 | PTCARENOTE ---
Update given to Anna AGUILAR from [facility]. No bed available for pt's transfer yet.
[2023-12-14 03:04] VITALS: BP 121/80
[2023-12-14 06:00] VITALS: BMI 25.6
[2023-12-14 06:50] LABS: % Basophils 1.2 % (0-2); % Eosinophils 6.2 % (0-6); % Immature Granulocytes 0.2 % (0-0.5); % Lymphocytes 18.6 % (20.5-51.1); % Monocytes 11.8 % (1.7-9.3); Absolute Basophils 0.1 10^3/uL (0-0.2); Absolute Eosinophils 0.3 10^3/uL (0-0.7); Absolute Lymphocytes 0.9 10^3/uL (1.2-3.4); Absolute Monocytes 0.6 10^3/uL (0.1-0.6); Absolute Neutrophils 3.1 10^3/uL (1.4-6.5); Hematocrit 41.8 % (39.0-52.0); Hemoglobin 13.3 g/dL (13.0-18.0); Mean Corp Hgb Conc. 31.8 g/dL (33.0-37.0); Mean Corpuscular Hgb 33.4 pg (27.0-31.0); Mean Platelet Volume 10.6 fL (7.4-10.4); Nucleated Red Blood Cells % 0 % (-); Platelet Count 188 10^3/uL (130-400); Red Blood Cell Count 3.98 10^6/uL (4.70-6.10); Red Cell Dist. Width 13.3 % (11.5-14.5)
[2023-12-14 07:25] VITALS: BP 125/82
[2023-12-14] MEDS: VENTOLIN NEBULES 2.5 MG INH (08:15)
[2023-12-14] MEDS: SPIRIVA RESPIMAT 2.5 MCG 2 PUFF INH (08:15)
[2023-12-14] MEDS: STRIVERDI RESPIMAT 2 PUFF INH (08:16)
[2023-12-14] MEDS: LOW STRENGTH ASPIRIN 81 MG PO (09:18)
[2023-12-14] MEDS: FOLVITE 1 MG PO (09:18)
[2023-12-14] MEDS: PROTONIX IV 40 MG IV (09:18)
[2023-12-14] MEDS: LASIX 40 MG PO ×2 (09:18→17:15)
[2023-12-14] MEDS: VITAMIN B1 100 MG PO ×2 (09:19→19:56)
[2023-12-14] MEDS: TOPROL XL 25 MG PO (09:19)
[2023-12-14] MEDS: NSS (PRESERVATIVE FREE) 10 ML IV (09:19)
[2023-12-14] MEDS: FLUSH (NSS) 2 FLUSH IV (09:19)
--- NOTE | 2023-12-14 09:25 | CM ---
CM continues to follow for transfer to [facility]; no bed currently available.
Plan: Transfer to [facility] when bed available.
--- NOTE | 2023-12-14 10:01 | W.PN.HOSP.TC ---
Addendum entered and electronically signed by Srikanth Daley MD 12/14/23 23:50:
Attending Addendum-
I saw and evaluated the patient. I reviewed the resident�s note and agree with findings and plan as documented in the resident�s note. No complaints. Feels well. Ready to go to [place]. Denies SOB and CP currently. Full 12 point ROS reviewed and
negative except as documented Exam- vitals reviewed in EMR GEN-NAD heart RRR 08/13 SM @ apex thrill present, 08/13 SM @ RUSB lungs fine crackles at bases with scattered wheeze LE +1 pitting edema b/l right radial approach- bandaged Neuro AAO x 3
# Severe MR-
- CT surg c/s appreciated
- right/left heart cath-12/10-
1. Dominant circulation with a 40% lesion in the mid circumflex.
2. Mild to moderately elevated filling pressures (LVEDP = 16 mmHg, PCWP = 20 mmHg at 94.3 kg).
3. 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
4. Severe mitral valve regurgitation on echocardiogram.
- ROSS 12/12 - Left ventricle is mildly dilated. Normal left ventricular systolic function.
Left ventricular ejection fraction is 50-55%.
Prolapse and partial flail of the posterior mitral valve leaflet at P3. Severe,
eccentric mitral regurgitation.
Dilated RV with moderate/severely reduced RV function.
Moderate tricuspid regurgitation.
- transfer to [facility] for MVR vs mitraclip- initiated accepting physician Kusum Julien
- appreciate cards involvement in facilitating transfer
# AE HFpEF
- CHF- BNP 4820
- echo reviewed EF 50%
- cards in put appreciated
- daily weight strict i and o
- cont PO lasix
- cont lovenox
# Hypertensive Emergency
- resolved
- monitor BP closely
- cont new Toprol XL
- appreciate cards input
- monitor on tele
# BLAKE-
- mild worse
- CR syndrome and lasix
- cont PO lasix
- also received IV dye on 12/[address] scan and 12/10 for cath- monitor renal function closely
- repeat BMP in am
# Acute Hypoxemic Respiratory Failure
- resolved
- multifactorial CHF and COPD
- pulm c/s for eval - appreciate input
# COPD- new dx
- pulm input appreciated
- cont LABA/LAMA
- duonebs prn
# Non ischemic myocardial injury
- trend troponin- peaked .041
- cards on board
- echo 12/09- Low normal left ventricular systolic function. Left ventricular ejection fraction is 50%. ruptured chord and partial flail of
the anterior mitral valve leaflet. Severe, eccentric mitral regurgitation. Elevated PASP
# Hypomagnesemia-
- replete
- repeat in am
# ETOH Abuse
- no s/s of w/d
- DC MSAS
- cont MVI/Thiamine/Folate
- CM consult
- counseled re cessation and offered support
# Tobacco Abuse-
- advised/counselled re quitting
- cont nicotine patch
# Hyponatremia
- resolved
- hypervolemic
- cont diuresis
- repeat BMP in am
- DVT P- Lovenox
Dispo- transfer to [facility] today 12/13
Time spent coordinating care, review of plan of care with resident, facilitation of transfer, DC planning, personally reviewed records in EMR, med rec, labs, d/w nursing ,cards and CM�- 38 mins
Original Note:
Today's Communication/Plan
-
Transfer to [place]
Assessment / Plan
Assessment / Plan
Assessment: 68-year-old male with PMHx of untreated hypertension presenting with hypertensive urgency, systolic ejection murmur and symptoms of heart failure.
Impression:
Hypertensive urgency
Acute hypoxic respiratory failure
Acute decompensated HFpEF
Chest pain
Bilateral LE edema
EtOH abuse
Tobacco abuse
Hyponatremia
Assessment and plan:
Hypertensive Urgency
-Presented with untreated hypertension.
-Resolved on as needed labetalol for systolic greater than 170, and metoprolol XL 25 p.o. once a day.
-Continue to monitor on telemetry
Acute Hypoxemic Respiratory Failure
-Improving, O2 supplementation weaned off, O2 sat 95 on room air.
-Multifactorial, decompensated HFpEF, pulmonary hypertension, reactive airway/COPD.
-CT chest 12/09/2023 with subsegmental atelectasis, mild bronchitis, mild central lobar emphysema.
-PFT 12/10/2023, with very severe COPD with significant air trapping.
-Right heart cath 12/11/2023 with pre-/post capillary pulmonary hypertension.
-DuoNebs were increased to 3 times daily
-Pulmonology following, and will follow the patient as outpatient.
-Continue p.o. diuresis
Acute decompensated HFmrEF
-Patient was transitioned to p.o. Lasix 40 mg twice daily, tolerating well.
-Continues losing weight, edema improving
-Continue diuresis for now.
-S/p ROSS, 12/13/2023
-Exacerbated by multiple valvular insufficiency. Likely etiology include pulmonary hypertension, fluid overload.
-TTE 12/10/2023 with severe MR, and EF 50%.
-Cardiology following
-Patient will be transferred to [place], under the care of Dr. Kusum Julien, for his mitral valve repair.
-Transfer was initiated pertinent scans were also sent over by cardiology.
-Overnight, [place] called for an update on patient, still no bed available.
-Transfer patient once bed is available
BLAKE
-Creatinine decreased from 1.5-1.3
-Resolved
-Cardiology was consulted and on recommendations regarding IV diuresis
Patient will be kept on 40 mg IV Lasix once today.
Chest Pain
-Resolved
-Troponin peaked at 0.041.
B/L LE Edema
-Improving.
-Component of HFmrEF.
-Peripheral vascular US with no evidence of DVT bilaterally.
-Continue p.o. Lasix.
-Monitor I's and O's and daily weights.
ETOH Abuse
-Drinks 4-6 drinks per night @ 20 years
-Continue MSAS protocol, score 1
-Alcohol use counseling provided.
Tobacco Abuse-
- advised/counselled re quitting
- start nicotine patch
Hyponatremia
-136 today, stable
-Resolved
-Monitor electrolytes with daily CBC
- DVT P- Lovenox
CODE STATUS: Full code

Data:
Echocardiography 12/10/2023:
Low normal left ventricular systolic function. Left ventricular ejection
fraction is 50%.
Thickened mitral valve leaflets. There is a ruptured chord and partial flail of
the anterior mitral valve leaflet.
Severe, eccentric mitral regurgiation.
Aortic sclerosis without stenosis. Trace aortic regurgitation is seen.
Enlarged right ventricular size. Reduced right ventricular systolic function.
Moderate tricuspid regurgitation. Moderate/severely elevated PASP. Estimated
pulmonary artery pressure of 55 mmHg assuming a right atrial pressure of 15
mmHg.
Cardiac catheterization 12/31/2023:
CONCLUSIONS:
1. Right dominant circulation with a 40% lesion in the mid circumflex.
2. Mild to moderately elevated filling pressures (LVEDP = 16 mmHg, PCWP = 20 mmHg at 94.3 kg).
3. 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
4. Severe mitral valve regurgitation on echocardiogram.
RECOMMENDATIONS:
1. Expectant management after cardiac catheterization via right radial/antecubital approach.
2. Limited weight bearing on the right wrist for one week.
3. Guideline directed medical therapy as hemodynamics will tolerate.
4. Consultation with CT surgery regarding optimal strategy for mitral valve repair (surgical versus percutaneous).
CT chest 12/09/2023:
1. MODERATE to SEVERE CARDIOMEGALY suggesting a DILATED NONISCHEMIC CARDIOMYOPATHY.
2. Mild calcific atherosclerotic plaque in the coronary arteries.
3. Mild centrilobular emphysema in the upper lobes of both lungs.
4. Mild bronchial wall thickening in the lower lobes suggesting mild bronchitis.
5. Mild scarring and subsegmental atelectasis in the lower lungs.
6. 3.2 cm midline cyst in the anterior chest wall.
Anticipated Discharge: Within 24 hours
Subjective/Interval History
-
Date of Service: December 14, 2023
Pending called overnight for an update still no bed.
Objective Data
-
Labs:
Laboratory Results
12/14/23 12/14/23
06:10 08:18
WBC 5.0
Hgb 13.3
Hct 41.8
Plt Count 188
Sodium Pending
Potassium Pending
Chloride Pending
Carbon Dioxide Pending
BUN Pending
Creatinine Pending
Glucose Pending
Calcium Pending
Vital Signs:
Vital Signs
Temp Pulse Resp BP Pulse Ox
98.6 F 110 14 125/82 98
12/14/23 07:25 12/14/23 09:18 12/14/23 08:20 12/14/23 09:18 12/14/23 08:20
I&O
12/13/23 12/14/23 12/15/23
06:59 06:59 06:59
Intake Total 910 / 910 240 / 240
Output Total 2100 / 2100
Balance -1190 / -1190 240 / 240
Review of Systems
-
History Source: Patient
Constitutional: Reports No Symptoms and Weight Loss; Denies Fever or Weight Gain
Respiratory: Reports No Symptoms
Cardiac: Reports No Symptoms; Denies Chest Pain
Abdomen/GI: Reports No Symptoms
Genitourinary: Reports No Symptoms
Musculoskeletal: Reports No Symptoms
Neuro: Reports No Symptoms
Physical Exam
-
General: Well Developed, No Apparent Distress and Comfortable
Respiratory: Wheezes and Non Labored Respirations
Cardiac: Regular Rhythm, S1/S2 and Murmur
GI: Soft, Nontender, Nondistended and Normal Bowel Sounds
Musculoskeletal: Edema, Right Lower Extrem (+1) and Edema, Left Lower Extrem (+1)
Skin: Warm
Neuro: Awake, Alert, Oriented and AO x 3
Psych: Calm and Intact Judgement/Insight
Data Reviewed
-
Labs: Labs Reviewed by me and Discussed with Physician
[2023-12-14 11:04] VITALS: BP 114/81
[2023-12-14 11:11] LABS: Blood Urea Nitrogen 27 mg/dl (9-20); Calcium 9.8 mg/dl (8.4-10.2); Carbon Dioxide 35 mmol/L (22-30); Chloride 95 mmol/L (98-107); Estimated Creatinine Clearance 52 ml/min; Glucose 114 mg/dl (70-99); Potassium 3.9 mmol/L (3.5-5.1); Sodium 136 mmol/L (135-145); eGFR 46.93
--- NOTE | 2023-12-14 11:44 | W.PN.PUL3 ---
Today's Communication / Plan
-
Continue inhaler regimen
Await transfer to [facility]
Outpatient pulmonary follow-up
We will sign off. Please call with questions
Assessment
-
Assessment: 68-year-old male with a past medical history of hypertension and hyperlipidemia presented with SOB X 2 weeks with significant lower extremity swelling and weight gain. Also endorsed occasional chest pain. Patient has not seen a doctor
in years hence past medical history is limited. He appeared volume overloaded on exam and was hypertensive initially to 160/115, with heart rate 129 and saturating 95% on room air. Dx with acute heart failure and he was given Vasotec IV X1 + Lasix
in the ER and admitted to the hospitalist service for further care with cardiology consulted. CXR showed cardiomegaly with left hemidiaphragm elevation, and CT of the chest showed centrilobular emphysema with moderate to severe cardiomegaly and
global cardiac chamber enlargement. TTE showed severe acute eccentric MR with ruptured chordae and partial flail of anterior MV leaflet seen on TTE. Cardiothoracic surgery consulted, and preoperative PFT performed on 12/10/2023 showed very severe
COPD with significant BD response, significant air trapping, very severe gas exchange capacity defect as well as very severe restrictive lung defect. He underwent left and right heart catheterization today showing right dominant circulation with
40% lesion in the mid circumflex, with elevated LVEDP at 16 mmHg with PCWP 20 mmHg, with severe MR seen on echo from yesterday. Pulmonary now consulted for additional management of his COPD as well as preoperative pulmonary optimization.
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
Impression:
#Very severe COPD (due to centrilobular emphysema) with air trapping
#Hypertensive urgency now resolved
#Moderate�severe cardiomegaly with suggested dilated NICM from uncontrolled long-standing HTN (+/- EtOH), with mild coronary calcific atherosclerotic plaque seen on CTA chest from 12/09/2023
#Acute decompensated heart failure/acute HFpEF with severe eccentric MR with ruptured cord and partial flail of anterior MV leaflet (per TTE from 12/10/2023)
#Moderate pulmonary hypertension with mPAP: 38mmHg
#Daily alcohol use
#Tobacco use disorder
Plan/recommendations
Patient objectively and subjectively improved. Minimal wheezing noted on right hemithorax
PFT noted, very severe obstructive lung disease, severe gas exchange defect
Moving forward
ROSS done today showing severe RA dilatation with RV dysfunction, and anatomy challenging for MitraClip placement. Patient awaiting transfer to [facility] for consideration of TMVR.
Cardiothoracic surgery following and assisted in transfer to [facility]
Continues to diurese as able
Cardiology also following
Continue with maintenance inhaler therapy
Continue LAMA/LABA combo with Spiriva and Striverdi, and changed ATC Duonebs to prn; he should be DC'd home on either Stiolto vs Anoro ellipta with outpatient follow up (which I will arrange)
Tobacco cessation strongly encouraged and reinforced during today's encounter
- Discussed nicotine replacement therapy
- Nicotine patch for now
- He qualifies for LDCT chest for lung cancer screening purposes -considering he just had a CTA chest performed on 12/09/2023, he does not need to repeat CT chest until December 2024
DVT ppx: Enoxaparin
Outpatient follow-up will be arranged for full PFTs and management of COPD. No additional pulmonary recommendations at this time.
We will sign off. Please call with questions
Data:
CTA Chest 12-09-2023:
1. MODERATE to SEVERE CARDIOMEGALY suggesting a DILATED NONISCHEMIC CARDIOMYOPATHY.
2. Mild calcific atherosclerotic plaque in the coronary arteries.
3. Mild centrilobular emphysema in the upper lobes of both lungs.
4. Mild bronchial wall thickening in the lower lobes suggesting mild bronchitis.
5. Mild scarring and subsegmental atelectasis in the lower lungs.
6. 3.2 cm midline cyst in the anterior chest wall.
LHC/RHC 12-11-2023:
CONCLUSIONS:
1. Right dominant circulation with a 40% lesion in the mid circumflex.
2. Mild to moderately elevated filling pressures (LVEDP = 16 mmHg, PCWP = 20 mmHg at 94.3 kg).
3. 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
4. Severe mitral valve regurgitation on echocardiogram.
RECOMMENDATIONS:
1. Expectant management after cardiac catheterization via right radial/antecubital approach.
2. Limited weight bearing on the right wrist for one week.
3. Guideline directed medical therapy as hemodynamics will tolerate.
4. Consultation with CT surgery regarding optimal strategy for mitral valve repair (surgical versus percutaneous).
TTE 12-10-2023:
Low normal left ventricular systolic function. Left ventricular ejection
fraction is 50%.
Thickened mitral valve leaflets. There is a ruptured chord and partial flail of
the anterior mitral valve leaflet.
Severe, eccentric mitral regurgiation.
Aortic sclerosis without stenosis. Trace aortic regurgitation is seen.
Enlarged right ventricular size. Reduced right ventricular systolic function.
Moderate tricuspid regurgitation. Moderate/severely elevated PASP. Estimated
pulmonary artery pressure of 55 mmHg assuming a right atrial pressure of 15
mmHg.
No prior study available for comparison.
Subjective Data
-
Date of Service:
Date of Service: December 14, 2023
Chief Complaint: Pulmonary Follow Up
Subjective:
Patient seen and examined earlier this morning. He is feeling well, does feel his inhaler regimen helps. Denies hemoptysis, chest pain, lightheadedness. Awaiting transfer to [facility]
Objective Data
Data Reviewed
Vital Signs / I&O / Oxygen:
Vital Signs
Temp Pulse Resp BP Pulse Ox
99.0 F 90 18 114/81 96
12/14/23 11:04 12/14/23 11:04 12/14/23 11:04 12/14/23 11:04 12/14/23 11:04
Intake and Output
12/13/23 12/14/23 12/15/23
06:59 06:59 06:59
Intake Total 910 / 910 240 / 240
Output Total 2099 / 2099
Balance -1190 / -1190 240 / 240
SaO2 96
Nasal Cannula flow liters per 2
minute
Physical Exam
General: Comfortable
HEENT: Normocephalic and Anicteric
Cardiovascular: S1-S2, Murmur (2/6 systolic murmur apex + left fifth intercostal space), Rub (n), Peripheral Edema (+2 lower extremity pitting edema) and Calf Tenderness (n)
Respiratory: Wheeze (Few expiratory), Crackles (n), Rhonchi (n), Non-Labored Respirations and Stridor (n)
GI: Soft, Non Distended and Non Tender
Neurology: AO x 3 and Tremors (n)
Skin: Warm, Dry, Cyanosis (n), Jaundice (n) and Rash (n)
Labs/Micro/Reports
Lab Data
12/14/23 06:10
12/14/23 10:12
[2023-12-14] MEDS: NICODERM TRANSDERMAL 7 MG TRANSDERM (12:25)
[2023-12-14 15:25] VITALS: BP 113/72
--- NOTE | 2023-12-14 17:00 | PTCARENOTE ---
Discussed with pt about trying to use urinal for more accurate I & O with CHF. Pt finds it difficult to void in the urinal and voids in the bathroom, occasionally using urinal.
[2023-12-14] MEDS: LOVENOX 40 MG SC (17:16)
--- NOTE | 2023-12-14 18:20 | PTCARENOTE ---
Spoke with Elizabeth in [facility]. [facility] has bed for pt. Pt will be going to [facility]. Elizabeth made RN know that receiving physician at [facility] specifically is asking for a disc of pt's echo and cardiac cath.
Disc is not on pt's chart, attempting to get disc to be sent with pt tonight on transfer.
--- NOTE | 2023-12-14 19:48 | PTCARENOTE ---
Provided report to Latonia at [facility]. Pt transport time is 2030 with Acute Care to [facility]. Made Latonia aware that we do not have the disc for pt's echo and cardiac cath but that the nursing home energy consultant supervisor (Khadra) is hopeful that she should be able
to get it tomorrow at some point.
[2023-12-14 19:55] VITALS: BP 129/81
== END 2023-12-14 22:09 | disposition short-term general hospital (02) | DRG 286 ==
LOC: 4 EAST ACU 19:13
PROVIDERS: Clinical Nurse Specialist Acute Care; Internal Medicine Cardiovascular Disease; Nurse Practitioner Adult Health; Student in an Organized Health Care Education/Training Program; ADMITTING PHYSICIAN Family Medicine; CONSULT PHYSICIAN Internal Medicine; EMERGENCY PHYSICIAN Emergency Medicine; OTHER PHYSICIAN Internal Medicine Critical Care Medicine; OTHER PHYSICIAN Physician Assistant Medical
PROC: B211YZZ Fluoroscopy of Multiple Coronary Arteries using Other Contrast (ICD-10-PCS; 2023-12-11)
PROC: 4A023N8 Measurement of Cardiac Sampling and Pressure, Bilateral, Percutaneous Approach (ICD-10-PCS; 2023-12-11)
PROC: B24BZZ4 Ultrasonography of Heart with Aorta, Transesophageal (ICD-10-PCS; 2023-12-13)
DX: I11.0 Hypertensive heart disease with heart failure (principal); I50.31 Acute diastolic (congestive) heart failure; J96.01 Acute respiratory failure with hypoxia; I51.1 Rupture of chordae tendineae, not elsewhere classified; E87.1 Hypo-osmolality and hyponatremia; N17.9 Acute kidney failure, unspecified; I34.0 Nonrheumatic mitral (valve) insufficiency; I42.0 Dilated cardiomyopathy; I5A Non-ischemic myocardial injury (non-traumatic); I16.0 Hypertensive urgency; J44.89 Other specified chronic obstructive pulmonary disease; J43.2 Centrilobular emphysema; E78.5 Hyperlipidemia, unspecified; E83.42 Hypomagnesemia; I25.10 Atherosclerotic heart disease of native coronary artery without angina pectoris; I27.20 Pulmonary hypertension, unspecified; F10.10 Alcohol abuse, uncomplicated; F17.210 Nicotine dependence, cigarettes, uncomplicated; Z91.148 Patient's other noncompliance with medication regimen for other reason
CPT/HCPCS: 94727; 94729; 70355; 71045; 71275; 80048; 80053; 80061; 80306; 81003; 82010; 82077; 82248; 82977; 83036; 83735; 83880; 84100; 84443; 84484; 85025; 85027; 85379; 85610; 85730; 93005; 93306; 93312; 93320; 93325; 93460; 93880; 93970; 94060; 94640; 96374; 96375; 99291; 99406; C1894; Q9967

== ENCOUNTER → 2024-01-09 08:10 | Outpatient (REF) | payer MEDICARE, OTHER, SELFPAY ==
[2024-01-09 10:10] LABS: INR 3.21; PT 33.3 Sec (11.4-14.6)
== END ==
LOC: HWLAB 08:10
PROVIDERS: ATTENDING PHYSICIAN Internal Medicine Cardiovascular Disease
DX: Z95.2 Presence of prosthetic heart valve (principal)
CPT/HCPCS: 36415; 85610

== ENCOUNTER → 2024-01-16 09:28 | Outpatient (REF) | payer MEDICARE, OTHER, SELFPAY ==
[2024-01-16 13:04] LABS: INR 5.85; PT 53.6 Sec (11.4-14.6)
== END ==
LOC: HWLAB 09:28
PROVIDERS: ATTENDING PHYSICIAN Internal Medicine Cardiovascular Disease
DX: Z95.2 Presence of prosthetic heart valve (principal)
CPT/HCPCS: 36415; 85610

== ENCOUNTER → 2024-01-21 10:38 | Outpatient (REF) | payer MEDICARE, OTHER, SELFPAY ==
[2024-01-21 12:12] LABS: INR 3.54; PT 35.4 Sec (11.4-14.6)
== END ==
LOC: HWLAB 10:38
PROVIDERS: ATTENDING PHYSICIAN Internal Medicine Cardiovascular Disease
DX: Z95.2 Presence of prosthetic heart valve (principal)
CPT/HCPCS: 36415; 85610

== ENCOUNTER → 2024-01-27 09:00 | Outpatient (REF) | payer MEDICARE, OTHER, SELFPAY ==
[2024-01-27 12:46] LABS: INR 3.66; PT 36.4 Sec (11.4-14.6)
== END ==
LOC: HWLAB 09:00
PROVIDERS: ATTENDING PHYSICIAN Internal Medicine Cardiovascular Disease
DX: Z95.2 Presence of prosthetic heart valve (principal)
CPT/HCPCS: 36415; 85610

== ENCOUNTER → 2024-02-03 09:27 | Outpatient (REF) | payer MEDICARE, OTHER, SELFPAY ==
[2024-02-03 11:51] LABS: INR 2.26; PT 24.8 Sec (11.4-14.6)
== END ==
LOC: HWLAB 09:27
PROVIDERS: ATTENDING PHYSICIAN Internal Medicine Cardiovascular Disease
DX: Z95.2 Presence of prosthetic heart valve (principal)
CPT/HCPCS: 36415; 85610

== ENCOUNTER → 2024-02-11 10:15 | Outpatient (REF) | payer MEDICARE, OTHER, SELFPAY ==
[2024-02-11 12:22] LABS: INR 1.64; PT 19.6 Sec (11.4-14.6)
== END ==
LOC: HWLAB 10:15
PROVIDERS: ATTENDING PHYSICIAN Internal Medicine Cardiovascular Disease
DX: I48.0 Paroxysmal atrial fibrillation (principal)
CPT/HCPCS: 36415; 85610

== ENCOUNTER → 2024-02-18 10:24 | Outpatient (REF) | payer MEDICARE, OTHER, SELFPAY ==
[2024-02-18 11:47] LABS: INR 1.75; PT 20.2 Sec (11.4-14.6)
== END ==
LOC: HWLAB 10:24
PROVIDERS: ATTENDING PHYSICIAN Internal Medicine Cardiovascular Disease
DX: I48.0 Paroxysmal atrial fibrillation (principal)
CPT/HCPCS: 36415; 85610

== ENCOUNTER → 2024-02-26 11:34 | Outpatient (REF) | payer MEDICARE, OTHER, SELFPAY ==
[2024-02-26 16:17] LABS: INR 1.95; PT 22.4 Sec (11.4-14.6)
== END ==
LOC: HWLAB 11:34
PROVIDERS: ATTENDING PHYSICIAN Internal Medicine Cardiovascular Disease
DX: I48.0 Paroxysmal atrial fibrillation (principal)
CPT/HCPCS: 36415; 85610

== ENCOUNTER → 2024-03-09 10:54 | Outpatient (REF) | payer MEDICARE, OTHER, SELFPAY ==
[2024-03-09 12:36] LABS: INR 1.86; PT 21.3 Sec (11.4-14.6)
== END ==
LOC: HWLAB 10:54
PROVIDERS: ATTENDING PHYSICIAN Internal Medicine Cardiovascular Disease
DX: I48.0 Paroxysmal atrial fibrillation (principal)
CPT/HCPCS: 36415; 85610

== ENCOUNTER → 2024-03-16 10:16 | Outpatient (REF) | payer MEDICARE, OTHER, SELFPAY ==
[2024-03-16 12:42] LABS: INR 1.88; PT 21.4 Sec (11.4-14.6)
== END ==
LOC: HWLAB 10:16
PROVIDERS: ATTENDING PHYSICIAN Internal Medicine Cardiovascular Disease
DX: I48.0 Paroxysmal atrial fibrillation (principal)
CPT/HCPCS: 36415; 85610

== ENCOUNTER → 2024-04-06 08:18 | Outpatient (REF) | payer MEDICARE, OTHER, SELFPAY | LOC: HWRCS 08:18 | PROVIDERS: ATTENDING PHYSICIAN Internal Medicine | DX: I25.10 Atherosclerotic heart disease of native coronary artery without angina pectoris (principal); Z98.890 Other specified postprocedural states; Z95.1 Presence of aortocoronary bypass graft; I36.1 Nonrheumatic tricuspid (valve) insufficiency; I27.20 Pulmonary hypertension, unspecified | CPT/HCPCS: 93306 ==

== ENCOUNTER → 2024-04-10 10:32 | Outpatient (REF) | payer MEDICARE, OTHER, SELFPAY ==
[2024-04-10 15:40] LABS: % Basophils 1.4 % (0-2); % Eosinophils 1.9 % (0-6); % Immature Granulocytes 1.4 % (0-0.5); % Lymphocytes 19.7 % (20.5-51.1); % Monocytes 9.8 % (1.7-9.3); % Neutrophils 65.8 % (42.2-75.2); Absolute Basophils 0.1 10^3/uL (0-0.2); Absolute Eosinophils 0.1 10^3/uL (0-0.7); Absolute Immature Granulocytes 0.1 10^3/uL (0-0.05); Absolute Lymphocytes 1.3 10^3/uL (1.2-3.4); Absolute Monocytes 0.6 10^3/uL (0.1-0.6); Absolute Neutrophils 4.2 10^3/uL (1.4-6.5); Hematocrit 45.6 % (39.0-52.0); Hemoglobin 15.8 g/dL (13.0-18.0); Mean Corp Hgb Conc. 34.6 g/dL (33.0-37.0); Mean Corpuscular Volume 101.1 fL (80.0-94.0); Nucleated Red Blood Cells % 0 % (-); Platelet Count 249 10^3/uL (130-400); Red Blood Cell Count 4.51 10^6/uL (4.70-6.10); Red Cell Dist. Width 15.7 % (11.5-14.5); White Blood Cell Count 6.3 10^3/uL (4.8-10.8)
[2024-04-10 15:50] LABS: ALT (SGPT) 47 U/L (0-50); AST (SGOT) 56 U/L (17-59); Albumin 3.7 g/dl (3.5-5.0); Alkaline Phosphatase 77 U/L (38-126); Blood Urea Nitrogen 38 mg/dl (9-20); Calcium 9.8 mg/dl (8.4-10.2); Carbon Dioxide 29 mmol/L (22-30); Chloride 98 mmol/L (98-107); Glucose 114 mg/dl (70-99); HDL Cholesterol 43 mg/dl; Potassium 5.1 mmol/L (3.5-5.1); Sodium 136 mmol/L (135-145); Total Bilirubin 1.5 mg/dl (0.2-1.3); Total Cholesterol 211 mg/dl (50-199); Total Protein 6.8 g/dl (6.3-8.2); eGFR 46.93
[2024-04-10 16:02] LABS: LDL Cholesterol, Calculated 6 mg/dl; Triglyceride 814 mg/dl (10-149); Very Low Density Lipoprotein 162 mg/dl (0-30)
[2024-04-10 16:25] LABS: LDL Cholesterol, Direct < 30 mg/dl
== END ==
LOC: HWLAB 10:32
PROVIDERS: ATTENDING PHYSICIAN Internal Medicine
DX: I25.10 Atherosclerotic heart disease of native coronary artery without angina pectoris (principal); I10 Essential (primary) hypertension; E78.00 Pure hypercholesterolemia, unspecified
CPT/HCPCS: 36415; 80053; 80061; 83721; 85025

== ENCOUNTER → 2024-05-12 11:07 | Outpatient (REF) | payer MEDICARE, OTHER, SELFPAY ==
[2024-05-12 12:58] LABS: HDL Cholesterol 46 mg/dl
[2024-05-12 13:10] LABS: LDL Cholesterol, Direct 38 mg/dl
[2024-05-12 13:19] LABS: Total Cholesterol 612 mg/dl (50-199)
[2024-05-12 13:51] LABS: LDL Cholesterol, Calculated 325 mg/dl; Triglyceride 1207 mg/dl (10-149); Very Low Density Lipoprotein 241 mg/dl (0-30)
== END ==
LOC: HWLAB 11:07
PROVIDERS: ATTENDING PHYSICIAN Internal Medicine
DX: E78.00 Pure hypercholesterolemia, unspecified (principal)
CPT/HCPCS: 36415; 80061; 83721

== ENCOUNTER → 2024-06-26 10:41 | Outpatient (REF) | payer MEDICARE, OTHER, SELFPAY ==
[2024-06-26 13:01] LABS: Total Cholesterol 181 mg/dl (50-199); Triglyceride 133 mg/dl (10-149); Very Low Density Lipoprotein 26 mg/dl (0-30)
[2024-06-26 13:12] LABS: LDL Cholesterol, Direct 49 mg/dl
[2024-06-26 13:13] LABS: HDL Cholesterol 123 mg/dl; LDL Cholesterol, Calculated 32 mg/dl
== END ==
LOC: HWLAB 10:41
PROVIDERS: ATTENDING PHYSICIAN Internal Medicine
DX: E78.00 Pure hypercholesterolemia, unspecified (principal)
CPT/HCPCS: 36415; 80061; 83721

== ENCOUNTER → 2024-09-29 13:56 | Outpatient (REF) | payer MEDICARE, OTHER, SELFPAY | LOC: HWRCS 13:56 | PROVIDERS: ATTENDING PHYSICIAN Internal Medicine | DX: R06.09 Other forms of dyspnea (principal); I25.10 Atherosclerotic heart disease of native coronary artery without angina pectoris; Z98.890 Other specified postprocedural states; Z95.1 Presence of aortocoronary bypass graft | CPT/HCPCS: 93306 ==

== ENCOUNTER → 2024-09-30 12:07 | Outpatient (REF) | payer MEDICARE, OTHER, SELFPAY | LOC: HWRCS 12:07 | PROVIDERS: ATTENDING PHYSICIAN Internal Medicine | DX: R06.09 Other forms of dyspnea (principal); I25.10 Atherosclerotic heart disease of native coronary artery without angina pectoris; Z98.890 Other specified postprocedural states; Z95.1 Presence of aortocoronary bypass graft | CPT/HCPCS: 78452; 93017; A9500; J2785 ==